=== PATIENT | male | born 1985 | race African-American/Black ===

== ENCOUNTER 2017-06-20 16:51 | Emergency (ER) | payer SELFPAY ==
[~2017-06-20] VITALS: Ht 182.9 cm; Wt 97.5 kg
[2017-06-20] MEDS ORDERED: ACETAMINOPHEN 500 MG TAB (TYLENOL) PO STA (17:20)
[2017-06-20] MEDS ORDERED: KETOROLAC 60 MG/2 ML VIAL IM STA (17:29)
--- NOTE | 2017-06-20 17:36 | ED Cough/URI ---
General Chief Complaint: Cough/Cold/Flu Symptoms Stated Complaint: CHEST PAIN;TROUBLE BREATHING Nursing Triage Note: PT CO OF FEVER COUGH CHEST CONGESTION SINCE THIS AM, FAMILY HAS HAD FLU. Source: patient Exam Limitations: no limitations History of Present Illness Date Seen by Provider: Jun 20, 2017 Time Seen by Provider: 17:22 Initial Comments Here with report of fever, cough, congestion, runny nose and body aches since this morning. He did take an ibuprofen this morning. Reports that he has allergy to ibuprofen but states actually it's only if he does ibuprofen long- term medical therapy and to follow-up. Short-term he does not have problems with that. Denies nausea or vomiting. Planes of aches along his back and neck and shoulders as well as his chest and large muscle groups. This is all described as aching. He is febrile currently. Timing/Duration: this morning Severity/Quality: mild Prior Episodes/Possible Cause: occasional episodes Associated Symptoms: cough, fever/chills, muscle aches, nasal congestion, sore throat Allergies and Home Medications Allergies Coded Allergies: No Known Drug Allergies (Unverified , 06/20/17) Home Medications No Active Prescriptions or Reported Meds Constitutional: see HPI, chills, fever, malaise EENTM: nose congestion, throat pain Respiratory: see HPI Cardiovascular: no symptoms reported Gastrointestinal: no symptoms reported Musculoskeletal: see HPI, muscle pain, No muscle stiffness Skin: no symptoms reported Past Bmwceoo-Mpmucu-Srraoi Hx Patient Social History Alcohol Use: Occasionally Uses Recreational Drug Use: No Smoking Status: Current Someday Smoker Type Used: Cigarettes Recent Foreign Travel: No Contact w/Someone Who Travel: No Recent Infectious Disease Expo: No Recent Hopitalizations: No Physical Abuse: No Sexual Abuse: No Surgeries History of Surgeries: No Respiratory History of Respiratory Disorde: No Cardiovascular History of Cardiac Disorders: No Neurological History of Neurological Disord: No Genitourinary History of Genitourinary Disor: No Gastrointestinal History of Gastrointestinal Di: No Musculoskeletal History of Musculoskeletal Dis: No Psychosocial Suicide Risk Score: 0 Reviewed Nursing Assessment Reviewed/Agree w Nursing PMH: Yes Family Medical History Significant Family History: No Pertinent Family Hx Physical Exam Vital Signs Vital Signs - First Documented 06/20/17 16:55 Temp 100.6 Pulse 109 Resp 18 B/P (MAP) 134/93 (107) Pulse Ox 98 Capillary Refill : Less Than 3 Seconds General Appearance: WD/WN, no apparent distress HEENT: PERRL/EOMI, pharyngeal erythema, other (moderate bilateral sinus congestion moderate edema and clear rhinorrhea.) Neck: full range of motion, supple, lymphadenopathy (R), lymphadenopathy (L) Respiratory: normal breath sounds, no respiratory distress Cardiovascular: regular rate, rhythm, no murmur Gastrointestinal: non tender, soft Extremities: non-tender, normal inspection Neurologic/Psychiatric: alert, oriented x 3 Skin: normal color, warm/dry Progress/Results/Core Measures Suspected Sepsis Recent Fever Within 48 Hours: No Infection Criteria Present: None New/Unexplained Altered Menta: No Sepsis Screen: No Definite Risk Sepsis Diagnosis: SIRS Temperature:100.6 Pulse: 109 Respiratory Rate: 18 Blood Pressure 134 /93 Mean: 107 Results/Orders Micro Results Microbiology 06/20/17 Influenza Types A,B Antigen (BRIANNA) - Final, Complete My Orders Orders - MICHELLE ABEBE MD Influenza A And B Antigens (06/20/17 17:15) Acetaminophen Tablet (Tylenol Tablet) (06/20/17 17:20) Ketorolac Injection (Toradol Injection) (06/20/17 17:29) Vital Signs/I&O Vital Sign - Last 12Hours 06/20/17 16:55 Temp 100.6 Pulse 109 Resp 18 B/P (MAP) 134/93 (107) Pulse Ox 98 Capillary Refill : Less Than 3 Seconds Blood Pressure Mean: 107 Progress Note : Progress Note Seen and evaluated. Influenza screen ordered. Tylenol 1 g by mouth. Toradol 60 mg IM. Monitor patient. 1759: A little better. Flu is negative. Discharged home with return precautions. Patient verbalize understanding instructions and agreement with plan. Departure Impression Impression: Primary Impression: Upper respiratory infection Qualified Codes: J06.9 - Acute upper respiratory infection, unspecified Disposition: 01 HOME, SELF-CARE Condition: Stable Departure-Patient Inst. Decision time for Depature: 17:36 Referrals: NO,LOCAL PHYSICIAN (PCP) Primary Care Physician Patient Instructions: Viral Upper Respiratory Infection, Adult (DC) Add. Discharge Instructions: All discharge instructions reviewed with patient and/or family. Voiced understanding. You may take Tylenol/acetaminophen 1000 mg every 6 hours as needed for fever or pain. You may take ibuprofen 800 mg every 8 hours as needed for fever or pain. You may use Afrin nasal spray or the generic, 12 hour relief, 2 sprays to each nostril twice daily for 3 days only and then stop. Do not use for more than 3 days. You may also take imgg-rbw-ipqavkz cold medicine but be aware that many of these have acetaminophen in then and you should not take the Tylenol/acetaminophen if you are taking cold medicines. Follow-up with your doctor this week for recheck. Return for worse pain, fever, vomiting, weakness , breathing problems or other concerns as needed. Scripts No Active Prescriptions or Reported Meds MICHELLE ABEBE MD Jun 20, 2017 17:36
[2017-06-20 18:06] VITALS: BP 130/88
== END 2017-06-20 18:06 | disposition home or self-care (01) ==
LOC: ER 16:54
DX: J06.9 Acute upper respiratory infection, unspecified (principal); F17.210 Nicotine dependence, cigarettes, uncomplicated
CPT/HCPCS: 87804; 96372; 99284

== ENCOUNTER 2017-06-23 05:57 | Inpatient (IN) | payer SELFPAY ==
[~2017-06-23] VITALS: Ht 188 cm; Wt 88.6 kg
[2017-06-23 06:18] LABS: BASOPHILS % (AUTO) 0 % (0-10); EOSINOPHILS % (AUTO) 1 % (0-10); HEMATOCRIT 33 % (40-54); HEMOGLOBIN 11.7 G/DL (13.3-17.7); LYMPHOCYTES % (AUTO) 15 % (12-44); MEAN CORPUSCULAR HEMOGLOBIN 33 PG (25-34); MEAN CORPUSCULAR HGB CONC 35 G/DL (32-36); MEAN CORPUSCULAR VOLUME 93 FL (80-99); MEAN PLATELET VOLUME 9.9 FL (7.4-10.4); MONOCYTES # (AUTO) 0.2 X 10^3 (0.0-1.0); MONOCYTES % (AUTO) 4 % (0-12); NEUTROPHILS # (AUTO) 5.1 X 10^3 (1.8-7.8); NEUTROPHILS % (AUTO) 81 % (42-75); PLATELET COUNT 369 10^3/uL (130-400); RED BLOOD COUNT 3.58 10^6/uL (4.35-5.85); RED CELL DISTRIBUTION WIDTH 13.2 % (10.0-14.5); WHITE BLOOD COUNT 6.3 10^3/uL (4.3-11.0)
--- NOTE | 2017-06-23 06:19 | ED Cough/URI ---
General Chief Complaint: Chest Pain Stated Complaint: CP,SOB,PAIN ON LEFT SIDE OF CHEST AROUND TO BACK Source: patient Exam Limitations: no limitations History of Present Illness Date Seen by Provider: Jun 23, 2017 Time Seen by Provider: 06:12 Initial Comments This 31 year old black male presents with shortness of breath and cough. Patient is also having pleuritic left-sided chest pain that radiates into his back with coughing. The patient was evaluated in the emergency department several days ago and felt to have viral upper respiratory infection. Patient denies associated headache stiff neck or photophobia. He's had no associated vomiting or diarrhea. He denies dysuria. Patient denies cardiac or underlying pulmonary disease. However the patient does relate that he has had significant anxiety in the past and this exacerbates his present symptoms. Allergies and Home Medications Allergies Coded Allergies: No Known Drug Allergies (Unverified , 06/20/17) Home Medications No Active Prescriptions or Reported Meds Patient Home Medication List Home Medication List Reviewed: Yes Constitutional: diaphoresis, fever EENTM: no symptoms reported Respiratory: cough, short of breath Cardiovascular: chest pain (with oughing) Gastrointestinal: No abdominal pain, No nausea, No vomiting Genitourinary: No dysuria, No frequency Musculoskeletal: back pain (with coughing) Skin: No rash Psychiatric/Neurological: Anxiety Hematologic/Lymphatic: No Symptoms Reported Immunological/Allergic: no symptoms reported Past Uaxwhrp-Orpsrm-Qbrrad Hx Patient Social History Type Used: Cigarettes Recent Foreign Travel: No Contact w/Someone Who Travel: No Recent Hopitalizations: No Surgeries History of Surgeries: No Respiratory History of Respiratory Disorde: No Cardiovascular History of Cardiac Disorders: No Neurological History of Neurological Disord: No Genitourinary History of Genitourinary Disor: No Gastrointestinal History of Gastrointestinal Di: No Musculoskeletal History of Musculoskeletal Dis: No Reviewed Nursing Assessment Reviewed/Agree w Nursing PMH: Yes Family Medical History Significant Family History: No Pertinent Family Hx Physical Exam Vital Signs Vital Signs - First Documented 06/23/17 05:59 Temp 98.1 Pulse 110 Resp 24 B/P (MAP) 146/79 (101) Pulse Ox 96 O2 Delivery Room Air Capillary Refill : General Appearance: WD/WN, mild distress Eyes: Bilateral Eye Normal Inspection HEENT: normal ENT inspection Neck: full range of motion Respiratory: No respiratory distress, decreased breath sounds, other (there is apparent chest pain when the patient coughs on his left.) Cardiovascular: normal peripheral pulses, regular rate, rhythm Gastrointestinal: normal bowel sounds, non tender, soft Extremities: normal range of motion, non-tender, normal inspection Neurologic/Psychiatric: no motor/sensory deficits, alert, normal mood/affect Skin: normal color, warm/dry, No rash Focused Exam Evaluation Lactate Level Laboratory Tests 06/23/17 06:05: Lactic Acid Level 1.41 Lactic Acid Level Laboratory Tests Test 06/23/17 06:05 Lactic Acid Level 1.41 MMOL/L (0.50-2.00) Progress/Results/Core Measures Suspected Sepsis SIRS Temperature: Pulse: Respiratory Rate: Laboratory Tests 06/23/17 06:05: White Blood Count 6.3 Blood Pressure / Mean: Laboratory Tests 06/23/17 06:05: Lactic Acid Level 1.41 Laboratory Tests 06/23/17 06:05: Platelet Count 369 Results/Orders Lab Results Laboratory Tests Test 06/23/17 06:05 Range/Units White Blood Count 6.3 4.3-11.0 10^3/uL Red Blood Count 3.58 L 4.35-5.85 10^6/uL Hemoglobin 11.7 L 13.3-17.7 G/DL Hematocrit 33 L 40-54 % Mean Corpuscular Volume 93 80-99 FL Mean Corpuscular Hemoglobin 33 25-34 PG Mean Corpuscular Hemoglobin Concent 35 32-36 G/DL Red Cell Distribution Width 13.2 10.0-14.5 % Platelet Count 369 130-400 10^3/uL Mean Platelet Volume 9.9 7.4-10.4 FL Neutrophils (%) (Auto) 81 H 42-75 % Lymphocytes (%) (Auto) 15 12-44 % Monocytes (%) (Auto) 4 0-12 % Eosinophils (%) (Auto) 1 0-10 % Basophils (%) (Auto) 0 0-10 % Neutrophils # (Auto) 5.1 1.8-7.8 X 10^3 Lymphocytes # (Auto) 1.0 1.0-4.0 X 10^3 Monocytes # (Auto) 0.2 0.0-1.0 X 10^3 Eosinophils # (Auto) 0.0 0.0-0.3 10^3/uL Basophils # (Auto) 0.0 0.0-0.1 10^3/uL Neutrophils % (Manual) 51 % Lymphocytes % (Manual) 20 % Monocytes % (Manual) 1 % Eosinophils % (Manual) 0 % Basophils % (Manual) 0 % Band Neutrophils 28 % Blood Morphology Comment NORMAL Lactic Acid Level 1.41 0.50-2.00 MMOL/L My Orders Orders - WILLOW LONGORIA MD Chest Pa/Lat (2 View) (06/23/17 06:10) Cbc With Automated Diff (06/23/17 06:10) Blood Culture (06/23/17 06:10) Lactic Acid Analyzer (06/23/17 06:10) Manual Differential (06/23/17 06:05) Lorazepam Tablet (Ativan Tablet) (06/23/17 06:45) Ceftriaxone Injection (Rocephin Injectio (06/23/17 07:15) Azithromycin Injection (Zithromax Inject (06/23/17 07:15) Medications Given in ED Current Medications Medications Dose Ordered Sig/Shwetha Route Start Time Stop Time Status Last Admin Dose Admin Lorazepam 0.5 mg ONCE ONCE PO 06/23/17 06:45 06/23/17 06:47 DC 06/23/17 06:41 0.5 MG Vital Signs/I&O Vital Sign - Last 12Hours 06/23/17 06/23/17 05:59 05:59 Temp 98.1 Pulse 110 Resp 24 B/P (MAP) 146/79 (101) Pulse Ox 96 O2 Delivery Room Air Capillary Refill : Progress Note : Time: 07:20 Progress Note Patient's chest x-ray demonstrated bilateral infiltrates. Patient's white count was unremarkable patient had a significant bandemia. Patient received 2 g Rocephin IV and 500 mg of Zithromax IV was ordered. Telephone consultation was undertaken with Dr. Snow who is kind enough to admit patient. Critical Care Note Critical Care Total Time (minutes) 40 MINUITES for IV antibiotics, admission consultation, and admit orders Departure Communication (Admissions) Time/Spoke to Admitting Phy: 07:[address] Snow. Impression Impression: Primary Impression: Pneumonia Qualified Codes: J18.9 - Pneumonia, unspecified organism Disposition: ADMITTED INPATIENT Condition: Improved Admissions Decision to Admit Reason: Admit from ER (General) Decision to Admit/Date: Jun 23, 2017 Time/Decision to Admit Time: 07:22 Transfer Time Spoke to Accepting Phy: 07:22 Departure-Patient Inst. Referrals: NO,LOCAL PHYSICIAN (PCP/Family) Primary Care Physician Scripts No Active Prescriptions or Reported Meds WILLOW LONGORIA MD Jun 23, 2017 06:19
[2017-06-23] MEDS ORDERED: LORazepam 1 MG (ATIVAN) TAB PO ONE (06:30)
[2017-06-23 06:35] LABS: BAND NEUTROPHILS 28 %; BASOPHILS % (MANUAL) 0 %; EOSINOPHILS % (MANUAL) 0 %; LYMPHOCYTES % (MANUAL) 20 %; MONOCYTES % (MANUAL) 1 %; NEUTROPHILS % (MANUAL) 51 %; RBC MORPH NORMAL
[2017-06-23] MEDS ORDERED: LORazepam 0.5 MG (ATIVAN) TABLET PO ONE (06:45)
[2017-06-23] MEDS ORDERED: cefTRIAXone INJECTION 2,000 MG in NS (IVPB) 100 ML IV ONE (07:15)
[2017-06-23] MEDS ORDERED: AZITHROMYCIN INJECTION 500 MG in NS (IVPB) 250 ML IV ONE (07:15)
--- NOTE | 2017-06-23 07:21 | Diagnostic Imaging Report ---
INDICATION: Cough and congestion. COMPARISON: None available. FINDINGS: Multifocal airspace consolidations involving the right middle lobe, left lower lobe and left upper lobe. No pleural effusion or pneumothorax. Heart is normal in size. Normal pulmonary vasculature. IMPRESSION: Multifocal pneumonia involving both lungs. Advise followup PA and lateral chest radiographs in 4 weeks after appropriate medical management to ensure resolution. Dictated by: Dictated on workstation # [id number]
[2017-06-23] MEDS ORDERED: RT-ALBUTEROL/IPRATROPIUM 3 ML (DUONEB) VIAL INH ONE (07:30)
[2017-06-23] MEDS: NS IV 1000 ML 1,000 ML IV SCH ×2 (09:13→20:04)
[2017-06-23] MEDS ORDERED: INFLUENZA TRIvalent 2017-2018 0.5 ML/45 MCG SYR IM ONE (10:45)
[2017-06-23] MEDS: RT-ALBUTEROL/IPRATROPIUM 3 ML (DUONEB) VIAL IH SCH ×3 (10:46→19:10)
--- NOTE | 2017-06-23 11:23 | History & Physical-Hospitalist ---
HPI History of Present Illness: HPI/Chief Complaint CC: Pneumonia following influenza HPI: This is a 31-year-old -Turk[place] male who presents to the ER with wheezing and shortness of breath and fever 2 days following influenza diagnosis in the ER. He was prescribed Tamiflu and feels like he had worsened since that time. He was assessed in the ER and found to have bilateral pneumonia with wheezing on exam requiring admission to hospital for IV antibiotics and nebulizer treatments and IV steroids. He reports that he moved from [place] one year ago and has no local physician. He works at the [employer] at the intersection of [address] He reports smoking a half a pack of cigarettes. At this current time he denies any pain. He reports pain consistent with pleurisy so Toradol will be initiated along with Tussionex. Source: patient Exam Limitations: no limitations Date Seen 06/23/17 Time Seen by Provider: 11:00 Attending Physician Elsa Snow DO PCP No,Local Physician Referring Physician Date of Admission Jun 23, 2017 at 08:00 Home Medications & Allergies Home Medications Reviewed patient Home Medication Reconciliation Form Allergies Allergies Coded Allergies No Known Drug Allergies (Unverified06/20/17) Past Awgmxjw-Oddaow-Nacwvl Hx Patient Social History Marrital Status: single Employed/Student: employed ([employer]) Alcohol Use: Occasionally Uses Alcohol Beverage of Choice: Beer Recreational Drug Use: No Smoking Status: Current Everyday Smoker Type Used: Cigarettes Physical Abuse Screen: No Sexual Abuse: No Recent Foreign Travel: No Contact w/other who traveled: No Recent Hopitalizations: No Recent Infectious Disease Expo: No Immunizations Up To Date Pediatric: Yes Seasonal Allergies Seasonal Allergies: No Surgeries No Respiratory No Currently Using CPAP: No Currently Using BIPAP: No Cardiovascular No Neurological No Genitourinary No Gastrointestinal No Musculoskeletal No Endocrine History of Endocrine Disorders: No HEENT History of HEENT Disorders: No Cancer No Psychosocial History of Psychiatric Problem: Yes Behavioral Health Disorders: Anxiety Integumentary History of Skin or Integumenta: No Blood Transfusions History of Blood Disorders: No Reviewed Nursing Assessment Reviewed/Agree w Nursing PMH: Yes Family Medical History Significant Family History: No Pertinent Family Hx Family Hx: Asthma 19 FATHER Cardiovascular disease 19 FATHER (ENLARGED HEART) Review of Systems Constitutional: see HPI, chills, fever, malaise, weakness EENTM: no symptoms reported Respiratory: cough, dyspnea on exertion, short of breath, wheezing Cardiovascular: no symptoms reported Gastrointestinal: no symptoms reported Genitourinary: no symptoms reported Musculoskeletal: no symptoms reported Skin: no symptoms reported Psychiatric/Neurological: No Symptoms Reported All Other Systems Reviewed Negative Unless Noted: Yes Physical Exam Physical Exam Vital Signs Vital Signs - First Documented 06/23/17 06/23/17 05:59 07:36 Temp 98.1 Pulse 110 Resp 24 B/P (MAP) 146/79 (101) Pulse Ox 96 O2 Delivery Room Air O2 Flow Rate 0.50 Capillary Refill : Less Than 3 Seconds General Appearance: No Apparent Distress, WD/WN, Mild Distress (Mild acutely ill) Eyes: Bilateral Eye Normal Inspection, Bilateral Eye PERRL HEENT: PERRL/EOMI, Normal ENT Inspection, Pharynx Normal Neck: Full Range of Motion, Normal Inspection, Non Tender, Supple, Carotid Bruit Respiratory: Chest Non Tender, No Accessory Muscle Use, No Respiratory Distress , Crackles, Decreased Breath Sounds, Rales, Wheezing Cardiovascular: Regular Rate, Rhythm, No Edema, No Gallop, No JVD, No Murmur, Normal Peripheral Pulses Gastrointestinal: Normal Bowel Sounds, No Organomegaly, No Pulsatile Mass, Non Tender, Soft Back: Normal Inspection, No CVA Tenderness, No Vertebral Tenderness Extremity: Normal Capillary Refill, Normal Inspection, Normal Range of Motion, Non Tender, No Calf Tenderness, No Pedal Edema Neurologic/Psychiatric: Alert, Oriented x3, No Motor/Sensory Deficits, Normal Mood/Affect, Other (Anxious) Skin: Normal Color, Warm/Dry Lymphatic: No Adenopathy Results Results/Procedures Lab Laboratory Tests 06/23/17 06:05 Assessment/Plan Admission Diagnosis Assessment: Bilateral pneumonia with severe wheezing Recent influenza 2 days prior Acute exacerbation of COPD Current smoker Anxiety Pleuritic chest pain Admission Status: Inpatient Order (span 2 midnights) Reason for Inpatient Admission: IV antibiotics and IV steroids for bilateral pneumonia and acute exacerbation of COPD Assessment and Plan Plan: IV antibiotics IV steroids Nebulizers Tussionex Toradol for pleurisy Monitor labs Smoking cessation counseled Clinical Quality Measures AMI/AHF: ASA po Prior to arrival: No DVT/VTE Risk/Contraindication: Risk Factor Score Per Nursin RFS Level Per Nursing on Admit: 1=Low/No VTE PPX ELSA SNOW DO Jun 23, 2017 11:23
[2017-06-23] MEDS ORDERED: IBUPROFEN TABLET 200 MG TAB PO PRN (11:30)
[2017-06-23] MEDS ORDERED: fentaNYL INJECTION 100 MCG/2 ML AMP IVP PRN (11:30)
[2017-06-23] MEDS ORDERED: ACETAMINOPHEN 500 MG TAB (TYLENOL) PO PRN (11:30)
[2017-06-23] MEDS ORDERED: ONDANSETRON 4 MG/2 ML (SDV) Z0FRAN IVP PRN (11:30)
[2017-06-23] MEDS: methylPREDNISolone 40 MG/ML (Solu-MEDROL) VIAL IV SCH ×3 (11:56→23:54)
[2017-06-23] MEDS: KETOROLAC 30 MG/ML VIAL IVP PRN ×2 (11:56→18:13)
[2017-06-23] MEDS: LORazepam 0.5 MG (ATIVAN) TABLET PO PRN ×2 (11:56→18:14)
[2017-06-23 12:00] VITALS: BP 138/65
[2017-06-23] MEDS: HYDROCODONE/CHLOR 10MG/5 ML (TUSSIONEX SUSP) 5ML UDC PO SCH ×2 (12:03→20:39)
[2017-06-23 15:36] VITALS: BP 134/71
[2017-06-23] MEDS: ENOXAPARIN 40 MG/0.4 ML (LOVENOX) SYR SC SCH (16:46)
[2017-06-23 19:45] VITALS: BP 116/87
[2017-06-23 23:48] VITALS: BP 134/88
[2017-06-24] MEDS: KETOROLAC 30 MG/ML VIAL IVP PRN ×2 (00:47→08:24)
[2017-06-24 04:00] VITALS: BP 145/95
[2017-06-24 04:43] LABS: BASOPHILS % (AUTO) 0 % (0-10); EOSINOPHILS # (AUTO) 0.1 10^3/uL (0.0-0.3); EOSINOPHILS % (AUTO) 1 % (0-10); HEMATOCRIT 29 % (40-54); LYMPHOCYTES # (AUTO) 1.1 X 10^3 (1.0-4.0); LYMPHOCYTES % (AUTO) 10 % (12-44); MEAN CORPUSCULAR HEMOGLOBIN 33 PG (25-34); MEAN CORPUSCULAR HGB CONC 35 G/DL (32-36); MEAN CORPUSCULAR VOLUME 94 FL (80-99); MEAN PLATELET VOLUME 10.3 FL (7.4-10.4); MONOCYTES # (AUTO) 0.5 X 10^3 (0.0-1.0); MONOCYTES % (AUTO) 4 % (0-12); NEUTROPHILS % (AUTO) 85 % (42-75); PLATELET COUNT 325 10^3/uL (130-400); RED BLOOD COUNT 3.08 10^6/uL (4.35-5.85); RED CELL DISTRIBUTION WIDTH 13.3 % (10.0-14.5); WHITE BLOOD COUNT 11.7 10^3/uL (4.3-11.0)
[2017-06-24 04:56] LABS: ALANINE AMINOTRANSFERASE 42 U/L (0-55); ALBUMIN 3.4 GM/DL (3.2-4.5); ALKALINE PHOSPHATASE 86 U/L (40-136); BILIRUBIN,TOTAL 0.6 MG/DL (0.1-1.0); BUN/CREATININE RATIO 19; CALCIUM 9.5 MG/DL (8.5-10.1); CARBON DIOXIDE 18 MMOL/L (21-32); CHLORIDE 108 MMOL/L (98-107); CREATININE SERUM 0.79 MG/DL (0.60-1.30); GFR ESTIMATED > 60; GLUCOSE 196 MG/DL (70-105); POTASSIUM 3.5 MMOL/L (3.6-5.0); SODIUM 139 MMOL/L (135-145); TOTAL PROTEIN 6.9 GM/DL (6.4-8.2)
[2017-06-24] MEDS: NS IV 1000 ML 1,000 ML IV SCH (05:08)
[2017-06-24] MEDS: methylPREDNISolone 40 MG/ML (Solu-MEDROL) VIAL IV SCH ×3 (05:09→18:30)
[2017-06-24 08:00] VITALS: BP 157/99
[2017-06-24] MEDS: RT-ALBUTEROL/IPRATROPIUM 3 ML (DUONEB) VIAL IH SCH ×4 (08:00→19:29)
[2017-06-24] MEDS: LORazepam 0.5 MG (ATIVAN) TABLET PO PRN ×2 (08:24→18:36)
[2017-06-24] MEDS: AZITHROMYCIN 500 MG/NS 250 ML IVPB IV SCH ×2 (08:25)
[2017-06-24] MEDS: HYDROCODONE/CHLOR 10MG/5 ML (TUSSIONEX SUSP) 5ML UDC PO SCH ×2 (08:29→21:02)
[2017-06-24] MEDS: cefTRIAXone 1 GM/NS 100 ML IVPB IV SCH ×2 (10:59)
[2017-06-24 11:34] VITALS: BP 158/101
--- NOTE | 2017-06-24 11:43 | Progress Note-Hospitalist ---
Progress Note HPI/CC on Admission CC: Pneumonia following influenza HPI: This is a 31-year-old -[place]ales[place] male who presents to the ER with wheezing and shortness of breath and fever 2 days following influenza diagnosis in the ER. He was prescribed Tamiflu and feels like he had worsened since that time. He was assessed in the ER and found to have bilateral pneumonia with wheezing on exam requiring admission to hospital for IV antibiotics and nebulizer treatments and IV steroids. He reports that he moved from [place] one year ago and has no local physician. He works at the [place] [employer] at the intersection of [email or web address] He reports smoking a half a pack of cigarettes. At this current time he denies any pain. He reports pain consistent with pleurisy so Toradol will be initiated along with Tussionex. Progress Notes/Assess & Plan Date Seen 06/24/17 Time Seen by Provider: 10:30 Admission Dx/Process Assessment: Bilateral pneumonia with severe wheezing Recent influenza 2 days prior Acute exacerbation of COPD Current smoker Anxiety Pleuritic chest pain Diagonsis/Assessment & Plan Patient doing much better and pleuritic chest pain improved Hypertension noted and likely this is a chronic issue so will initiate diuretics for fluid on chest x-ray and help with blood pressure in addition to starting Norvasc Is able to ambulate but will provide oxygen due to shortness of breath but is only requiring 1.5 L to maintain oxygen saturation Anxiety component to small shallow breathing so will initiate incentive spirometry and a cappella with mat protocol. Blood cultures all positive for strep pneumo maintained on Rocephin and child at bedside today Smoking cessation counseling No fever, vital signs stable, improved, pleasant, oriented 3 Regular rate and rhythm, diminished breath sounds all nelson with crackles noted but good air expansion No edema Laboratory Tests 06/24/17 04:10 Assessment: Bilateral pneumonia with severe wheezing and BCx+ 3/4 bottles with Strep Pneumoniae on Rocephin day # 2 Recent influenza 2 days prior to admit Acute exacerbation of COPD Current smoker Anxiety Pleuritic chest pain HTN I assume this is chronic so place on Norvasc and give Lasix 20mg IVP Plan: IV antibiotics IV steroids Nebulizers Tussionex Toradol for pleurisy Monitor labs Smoking cessation counseled Ambulate with O2 IS w/Acupella Home O2 evaluation Check chest x-ray labs tomorrow LENORA PASTOR DO Jun 24, 2017 11:43
[2017-06-24] MEDS ORDERED: FUROSEMIDE 40 MG/4 ML INJ (LASIX) IVP ONE (11:45)
[2017-06-24] MEDS ORDERED: amLODIPine 5 MG (NORVASC) TAB PO SCH (11:45)
--- NOTE | 2017-06-24 11:48 | Diagnostic Imaging Report ---
INDICATION: Pneumonia EXAM: PA and lateral views of the chest were obtained. COMPARISON is made to study of 06/23/2017. FINDINGS: There has been worsening of extensive bilateral airspace disease. No pneumothorax is identified. No significant pleural fluid is seen. IMPRESSION: Extensive bilateral airspace disease, likely due to pneumonia, however superimposed edema and/or hemorrhage is not excluded. Clinical correlation and radiographic followup are recommended. Dictated by: Dictated on workstation # [id number]
[2017-06-24 15:14] VITALS: BP 158/101
[2017-06-24] MEDS: ENOXAPARIN 40 MG/0.4 ML (LOVENOX) SYR SC SCH (16:02)
[2017-06-24 16:55] VITALS: BP 136/97
[2017-06-24 21:20] VITALS: BP 164/92
[2017-06-25] VITALS (44 sets, daily range): BP systolic 112–217; BP diastolic 65–131
[2017-06-25] MEDS: methylPREDNISolone 40 MG/ML (Solu-MEDROL) VIAL IV SCH ×5 (00:03→23:23)
[2017-06-25 05:48] LABS: BASOPHILS % (AUTO) 0 % (0-10); EOSINOPHILS % (AUTO) 0 % (0-10); HEMATOCRIT 30 % (40-54); HEMOGLOBIN 10.7 G/DL (13.3-17.7); LYMPHOCYTES # (AUTO) 1.6 X 10^3 (1.0-4.0); LYMPHOCYTES % (AUTO) 9 % (12-44); MEAN CORPUSCULAR HEMOGLOBIN 32 PG (25-34); MEAN CORPUSCULAR HGB CONC 35 G/DL (32-36); MEAN CORPUSCULAR VOLUME 92 FL (80-99); MONOCYTES # (AUTO) 1.3 X 10^3 (0.0-1.0); MONOCYTES % (AUTO) 7 % (0-12); NEUTROPHILS # (AUTO) 14.8 X 10^3 (1.8-7.8); NEUTROPHILS % (AUTO) 84 % (42-75); PLATELET COUNT 380 10^3/uL (130-400); RED CELL DISTRIBUTION WIDTH 13.3 % (10.0-14.5); WHITE BLOOD COUNT 17.7 10^3/uL (4.3-11.0)
[2017-06-25 06:06] LABS: BAND NEUTROPHILS 5 %; BASOPHILS % (MANUAL) 0 %; EOSINOPHILS % (MANUAL) 0 %; LYMPHOCYTES % (MANUAL) 15 %; METAMYELOCYTES % 1 %; MONOCYTES % (MANUAL) 6 %; NEUTROPHILS % (MANUAL) 72 %; NUCLEATED RED BLOOD CELLS 2; REACTIVE LYMPHOCYTES 1 %
[2017-06-25 06:07] LABS: TOXIC GRANULATION/VACUOLAZATIO 1+
[2017-06-25] MEDS: RT-ALBUTEROL/IPRATROPIUM 3 ML (DUONEB) VIAL IH SCH (06:18)
[2017-06-25 06:24] LABS: ALANINE AMINOTRANSFERASE 34 U/L (0-55); ALBUMIN 3.4 GM/DL (3.2-4.5); ALKALINE PHOSPHATASE 111 U/L (40-136); BILIRUBIN,TOTAL 0.6 MG/DL (0.1-1.0); BUN/CREATININE RATIO 26; CALCIUM 9.7 MG/DL (8.5-10.1); CARBON DIOXIDE 24 MMOL/L (21-32); CHLORIDE 105 MMOL/L (98-107); GFR ESTIMATED > 60; GLUCOSE 140 MG/DL (70-105); POTASSIUM 3.3 MMOL/L (3.6-5.0); SODIUM 139 MMOL/L (135-145); TOTAL PROTEIN 7.2 GM/DL (6.4-8.2)
--- NOTE | 2017-06-25 06:49 | Pulmonary Consultation ---
History of Present Illness History of Present Illness Date of Consultation 06/25/17 06:40 Time Seen by Provider: 06:40 Date of Admission History of Present Illness 31yo AAM with hx of asthma and recently moved here from [place] 1 yr ago and has no PCP currently. Pt presented to ED secondary to worsening SOB and was dx with pneumonia. Pt was admitted to 4th floor and placed on Rocephin and Azithromycin. BC have grown out Strep pneumonia x 2. Despite being on adequate antibiotic therapy pt has persistently worsened throughout the night. He is requiring 70% Fio2 on Vapotherm and he has conversational dyspnea. Pt has also had pleurisy and has been treated with Toradol. Pt does admit to smoking 1/2 pk/ day. Denies illicit drug use. Denies vapor cigs. Allergies and Home Medications Allergies Coded Allergies: No Known Drug Allergies (Unverified , 06/20/17) Home Medications No Active Prescriptions or Reported Meds Past Gjqeuzs-Ghyxhj-Gydkkz Hx Patient Social History Alcohol Use: Occasionally Uses Alcohol Beverage of Choice: Beer Recreational Drug Use: No Smoking Status: Current Everyday Smoker Type Used: Cigarettes Recent Foreign Travel: No Contact w/Someone Who Travel: No Recent Infectious Disease Expo: No Recent Hopitalizations: No Immunizations Up To Date PED Vaccines UTD: Yes Seasonal Allergies Seasonal Allergies: No Surgeries History of Surgeries: No Respiratory History of Respiratory Disorde: No Currently Using CPAP: No Currently Using BIPAP: No Cardiovascular History of Cardiac Disorders: No Neurological History of Neurological Disord: No Genitourinary History of Genitourinary Disor: No Gastrointestinal History of Gastrointestinal Di: No Musculoskeletal History of Musculoskeletal Dis: No Endocrine History of Endocrine Disorders: No HEENT History of HEENT Disorders: No Cancer History of Cancer: No Psychosocial History of Psychiatric Problem: Yes Behavioral Health Disorders: Anxiety Integumentary History of Skin or Integumenta: No Blood Transfusions History of Blood Disorders: No Reviewed Nursing Assessment Reviewed/Agree w Nursing PMH: Yes Family Medical History Significant Family History: No Pertinent Family Hx Family Medial History: Asthma 19 FATHER Cardiovascular disease 19 FATHER (ENLARGED HEART) Review of Systems Time Seen by Provider: 07:06 Constitutional: Fever, Chills, Sweats, Weakness, Malaise Eyes: No: Pain, Vision change, Conjunctivae inflammation, Eyelid inflammation, Other, Redness ENT: No: Ear pain, Ear discharge, Nose pain, Nose discharge, Nose congestion, Mouth pain, Mouth swelling, Throat pain, Throat swelling, Other Respiratory: Shortness of breath, SOB with excertion, Wheezing, Pleuritic Pain , Sputum, No: Hemoptysis Cardiovascular: Chest Pain, Palpitations, Orthopnea, Paroxysmal Noc. Dyspnea, Lt Headedness, No: Edema Gastrointestinal: No: Nausea, Vomiting, Abdominal Pain, Diarrhea, Constipation , Melena, Hematochezia, Other Genitourinary: No Dysuria, No Frequency, No Incontinence, No Hematuria, No Retention, No Other Musculoskeletal: No: neck pain Neurological: Weakness, No: Change in speech, Confusion Exam Exam Vital Signs Date Time Temp Pulse Resp B/P (MAP) Pulse Ox O2 Delivery O2 Flow Rate FiO2 06/25/17 06:22 92 Vapotherm 15.00 70 06/25/17 04:05 98.8 70 32 168/92 (117) 93 Vapotherm 70.00 15.00 06/25/17 00:25 99.1 82 28 168/94 (118) 96 Vapotherm 70.00 15.00 06/24/17 21:20 98.2 71 49 164/92 (116) 95 Nasal Cannula 5.00 06/24/17 21:00 90 Nasal Cannula 5.00 06/24/17 19:31 92 Nasal Cannula 3.00 06/24/17 16:55 98.1 67 20 136/97 (110) 98 Nasal Cannula 3.00 06/24/17 15:14 86 96 32 06/24/17 15:08 96 3.00 06/24/17 14:59 92 Nasal Cannula 3.00 06/24/17 11:34 98.2 86 22 158/101 (120) 99 Nasal Cannula 1.50 06/24/17 10:41 95 Room Air 06/24/17 09:00 95 Nasal Cannula 1.00 06/24/17 08:00 98.3 82 20 157/99 (118) 100 Nasal Cannula 1.50 06/24/17 08:00 92 Room Air I & O 06/25/17 07:00 Intake Total 3040 ml Balance 3040 ml General Appearance: WD/WN, Anxious, Severe Distress HEENT: PERRL/EOMI, Normal ENT Inspection, Pharynx Normal Neck: Full Range of Motion, Normal Inspection, Non Tender, Supple, Carotid Bruit Respiratory: Accessory Muscle Use, Crackles, Decreased Breath Sounds, Rales, Respiratory Distress Cardiovascular: Regular Rate, Rhythm, No Edema, No Gallop, No JVD, No Murmur, Normal Peripheral Pulses Capillary Refill: Less Than 3 Seconds Gastrointestinal: normal bowel sounds, non tender, soft Extremity: Normal Capillary Refill, Normal Inspection, Normal Range of Motion, Non Tender, No Calf Tenderness, No Pedal Edema Neurologic/Psychiatric: Alert, Oriented x3, No Motor/Sensory Deficits, Normal Mood/Affect, Other (Anxious) Skin: Normal Color, Warm/Dry Lymphatic: No Adenopathy Results Lab Laboratory Tests 06/24/17 04:10 06/25/17 05:30 Assessment/Plan Assessment/Plan Acute Respiratory failure Bilateral pneumonia with probable ARDS -Check ABG -Check CT r/o empyema -Oxygen -Check echocardiogram -Check HIV Strep pneumonia -Continue Rocephin -Repeat zimmerman cultures Anemia -Check peripheral spear -monitor Will have low threshold for intubating pt secondary to severity of pneumonia. Will transfer pt to ICU and monitor closely. Attempted to call and phone states "not excepting calls at this time". Discussed with medical team and patient current condition and plan of care. I have also discussed with Dr. Snow. Critical Care: Critically Ill Patient Time spent with patient (mins): 120 Advance Care discuss with: patient, family member (s) ERIC SEALS DO Jun 25, 2017 06:49
[2017-06-25 07:05] LABS: ABG BASE EXCESS -1.3 MMOL/L (-2.5-2.5); ABG OXYGEN SATURATION 91 % (94-100); ABG PCO2 35 MMHG (35-45); ABG PH 7.42 (7.37-7.43); ABG PO2 59 MMHG (79-93); ABG TCO2 23.5 MMOL/L (21.0-31.0); ALLENS TEST POSITIVE; INSPIRED O2 15 LPM 70%; PATIENT TEMP 98.5; VENTILATOR NO
[2017-06-25] MEDS ORDERED: IOHEXOL 350 MG/ML 150 ML (OMNIPAQUE 350) VIAL IV ONE (07:15)
[2017-06-25] MEDS ORDERED: NS 250 ML (IVPB) BAG IV ONE (07:15)
[2017-06-25] MEDS ORDERED: LORazepam INJ 2 MG/ML (ATIVAN) VIAL IVP NR (07:45)
[2017-06-25] MEDS ORDERED: morphine INJ 10 MG/ML 1ML (SYR OR VIAL) IVP NR (07:45)
[2017-06-25] MEDS: morphine INJ 4 MG/ML 1 ML (VIAL/SYRINGE) ONE ×2 (07:47→07:49)
[2017-06-25] MEDS ORDERED: PROPOFOL DRIP (ICU) 100 ML IV ONE ×5 (07:49→17:18)
[2017-06-25] MEDS ORDERED: fentaNYL INJECTION 100 MCG/2 ML AMP INJ ONE (07:51)
[2017-06-25] MEDS ORDERED: MIDAZOLAM 5 MG/5 ML (VERSED) VIAL INJ ONE (07:51)
[2017-06-25] MEDS ORDERED: SUCCINYLCHOLINE INJ 100 MG/5 ML SYR INJ ONE (07:51)
[2017-06-25] MEDS ORDERED: PROMETHAZINE INJ 25 MG/ML (PHENERGAN) AMP ONE (07:52)
[2017-06-25 07:56] LABS: BASOPHILS % (AUTO) 0 % (0-10); EOSINOPHILS % (AUTO) 0 % (0-10); HEMATOCRIT 30 % (40-54); HEMOGLOBIN 10.7 G/DL (13.3-17.7); LYMPHOCYTES # (AUTO) 1.6 X 10^3 (1.0-4.0); LYMPHOCYTES % (AUTO) 9 % (12-44); MEAN CORPUSCULAR HEMOGLOBIN 32 PG (25-34); MEAN CORPUSCULAR HGB CONC 35 G/DL (32-36); MEAN CORPUSCULAR VOLUME 92 FL (80-99); MONOCYTES # (AUTO) 1.3 X 10^3 (0.0-1.0); MONOCYTES % (AUTO) 7 % (0-12); NEUTROPHILS # (AUTO) 14.8 X 10^3 (1.8-7.8); NEUTROPHILS % (AUTO) 84 % (42-75); PLATELET COUNT 380 10^3/uL (130-400); RED CELL DISTRIBUTION WIDTH 13.3 % (10.0-14.5); WHITE BLOOD COUNT 17.7 10^3/uL (4.3-11.0)
[2017-06-25] MEDS: PROPOFOL DRIP (ICU) 100 ML IV SCH ×3 (08:00→23:51)
[2017-06-25 08:14] LABS: ABSOLUTE RETIC # 10 10e9/L (24-90); RETICULOCYTE % 0.32 % (0.50-2.40)
[2017-06-25] MEDS ORDERED: CISATRACURIUM 2MG/ML (NIMBEX) 10ML VIAL IV ONE ×2 (08:15→08:30)
[2017-06-25 08:29] LABS: BAND NEUTROPHILS 5 %; BASOPHILS % (MANUAL) 0 %; EOSINOPHILS % (MANUAL) 0 %; LYMPHOCYTES % (MANUAL) 15 %; METAMYELOCYTES % 1 %; MONOCYTES % (MANUAL) 6 %; NEUTROPHILS % (MANUAL) 72 %; NUCLEATED RED BLOOD CELLS 2; REACTIVE LYMPHOCYTES 1 %; TOXIC GRANULATION/VACUOLAZATIO 1+
--- NOTE | 2017-06-25 08:30 | Pulmonary Progress Note ---
Standard Progress Note Progress Notes Date Seen by Provider: Jun 25, 2017 Time Seen by Provider: 08:25 Pt is doing worse and has conversational dyspnea. Will proceed with intubation. Assessment & Plan Acute Respiratory failure Bilateral pneumonia with ARDS -Check CT r/o empyema -Oxygen -Check echocardiogram -Check HIV Strep pneumonia -Continue Rocephin -Repeat zimmerman cultures Anemia -Check peripheral spear -monitor Called to bedside after patient transferred to ICU secondary to pt having rapidly progressive SOB. Will proceed with intubation. ERIC SEALS DO Jun 25, 2017 08:30
--- NOTE | 2017-06-25 08:31 | Pulmonary Procedures ---
Pulmonary Procedures Date of Procedure Date of Service: Jun 25, 2017 Time of Intubation: 08:31 Intubation Method: orotracheal Medications: Fentanyl, Propofol, Succinylcholine, Versed Positive End Tide CO2: Yes Breath Sounds after Intubation: bilateral-equal Intubation Complications: no complications Post Intubation Xray: Yes ERIC SEALS DO Jun 25, 2017 08:31
[2017-06-25] MEDS ORDERED: fentaNYL INJECTION 1,250 MCG in NS (IVPB) 225 ML IV SCH (08:45)
--- NOTE | 2017-06-25 08:47 | Progress Note-Hospitalist ---
Subjective HPI/CC On Admission Date Seen by Provider: Jun 25, 2017 Time Seen by Provider: 07:55 CC: Pneumonia following influenza HPI: This is a 31-year-old -[place] male who presents to the ER with wheezing and shortness of breath and fever 2 days following influenza diagnosis in the ER. He was prescribed Tamiflu and feels like he had worsened since that time. He was assessed in the ER and found to have bilateral pneumonia with wheezing on exam requiring admission to hospital for IV antibiotics and nebulizer treatments and IV steroids. He reports that he moved from [place] one year ago and has no local physician. He works at the [place] at the intersection of [address] He reports smoking a half a pack of cigarettes. At this current time he denies any pain. He reports pain consistent with pleurisy so Toradol will be initiated along with Tussionex. Subjective/Events-last exam Pt found to have worsening resp failure this morning and transfer to ICU. I saw shortly before intubation and noticeably short of breath. Agrees to intubation. I have attempted to called his but there is no answer and no ability to leave voicemail. Objective Exam Vital Signs Vital Signs Date Time Temp Pulse Resp B/P (MAP) Pulse Ox O2 Delivery O2 Flow Rate FiO2 06/23/17 05:59 98.1 110 24 146/79 (101) 96 06/23/17 05:59 Room Air 06/23/17 07:36 0.50 06/24/17 15:14 32 Capillary Refill : Less Than 3 Seconds General Appearance: WD/WN, Moderate Distress Respiratory: Accessory Muscle Use, Crackles, Rhonci Cardiovascular: Regular Rate, Rhythm, No Murmur Gastrointestinal: Normal Bowel Sounds, Non Tender, Soft Extremity: Non Tender, No Calf Tenderness, No Pedal Edema Neurologic/Psychiatric: Alert, Oriented x3 Results/Procedures Lab Laboratory Tests 06/25/17 05:30 Assessment/Plan Assessment and Plan Assess & Plan/Chief Complaint Acute Respiratory Failure Critical Care: Critically Ill Patient Diagnosis/Problems Diagnosis/Problems (1) Acute respiratory failure Status: Acute Assessment & Plan: secondary to ARDS from strep pneumonia Continue on Rocephin and Azithro Pulm consulted, appreciate recs Intubated this AM- PEEP of 12 Will attempt prone positioning Lasix if BNP elevated and BP holds following sedation Triglyceride check ordered for high doses of propofol Nimbex as well Qualifiers: Qualified Codes: J96.01 - Acute respiratory failure with hypoxia (2) ARDS (adult respiratory distress syndrome) Status: Acute Assessment & Plan: As above Low TV as able Monitor I/Os- Lasix as needed Pulm consulted, appreciate recs Will attempt prone positioning (3) Streptococcal pneumonia Status: Acute Assessment & Plan: Strep grew in all tubes Continue abx as above Echo ordered Will check HIV Will add probiotic (4) Asthma Status: Chronic Assessment & Plan: Unsure of baseline Continue Steroids and MAT protocol Qualifiers: Qualified Codes: J45.909 - Unspecified asthma, uncomplicated (5) Bacteremia Assessment & Plan: Abx as above (6) Essential (primary) hypertension Status: Chronic Assessment & Plan: Currently on cardene gtt due to severely elevated BPs Increased Amlodipine and switched to via OG (7) Prophylactic measure Assessment & Plan: Lovenox Protonix Saline lock NPO CAIN BURRELL MD Jun 25, 2017 08:47
[2017-06-25] MEDS: PANTOPRAZOLE 40 MG/10 ML (PROTONIX) VIAL IV SCH (09:00)
--- NOTE | 2017-06-25 09:06 | Diagnostic Imaging Report ---
INDICATION: Post intubation. Comparison made with prior examination from 06/24/17. FINDINGS: There is increasing diffuse bilateral airspace disease. Heart size is stable. There is no pleural effusion or pneumothorax. ET and NG tubes appear to be in satisfactory position. IMPRESSION: Satisfactory placement of ET and NG tube. Increasing diffuse bilateral airspace disease Dictated by: Dictated on workstation # [id number]
--- NOTE | 2017-06-25 09:37 | Pulmonary Procedures ---
Pulmonary Procedures Date of Procedure Date of Service: Jun 25, 2017 Lumen: triple (US guided ) Central Line Procedure: betadine prep, sterile drapes applied, sterile dressing applied Position: internal jugular (R) Anesthesia: Lidocaine Volume Anesthetic (ccs): 5 Complications: none (CXR is pending) Post Position: sutured, good blood return (distal port no blood return ) ERIC SEALS DO Jun 25, 2017 09:37
[2017-06-25 10:00] LABS: ABG BASE EXCESS -0.5 MMOL/L (-2.5-2.5); ABG OXYGEN SATURATION 92 % (94-100); ABG PCO2 65 MMHG (35-45); ABG PO2 72 MMHG (79-93); ABG TCO2 28.2 MMOL/L (21.0-31.0)
[2017-06-25 10:01] LABS: ABG PH 7.23 (7.37-7.43); ALLENS TEST POSITIVE; INSPIRED O2 60%; PATIENT TEMP 98.4; VENTILATOR YES
[2017-06-25] MEDS ORDERED: hydrALAZINE (APESOLINE) 20 MG/ML VIAL ONE (10:09)
[2017-06-25] MEDS: RT-ALBUTEROL/IPRATROPIUM 3 ML (DUONEB) VIAL INH SCH ×8 (10:33→23:41)
--- NOTE | 2017-06-25 10:34 | Diagnostic Imaging Report ---
PROCEDURE: CT angiography of the chest with contrast. TECHNIQUE: Multiple contiguous axial images were obtained through the chest after uneventful bolus administration of intravenous contrast. Reconstructed CTA MIP acquisitions were also performed. INDICATION: Post intubation. COMPARISON: Comparison is made with chest radiograph performed earlier the same morning. FINDINGS: The tip of the endotracheal tube is well above the cris and near the thoracic inlet. There is a nasogastric tube which extends into the stomach. There appears to be a right IJ central line. The tip of the central line appears to deviate to the right in the region of the medial aspect of the right subclavian vein. The axillae are unremarkable. Small lymph nodes in the mediastinum, right paratracheal location are noted. There is more prominent lymph nodes in the prevascular space of the mediastinum with a lymph node having a short axis measurement of 13 mm. There is mild subcarinal fullness as well. No pericardial or pleural effusion is identified. Parenchymal evaluation demonstrates extensive five lobe airspace consolidation with air bronchograms. The central airways are patent. The upper abdomen is unremarkable. The bony structures appear nonacute. The central pulmonary arteries appear to be patent. No definite filling defects are seen. Lobar and segmental branches are also patent. The thoracic aorta is normal caliber. No dissection is identified. IMPRESSION: 1. Extensive five lobe airspace consolidation and air bronchograms. The considerations include pulmonary edema, pneumonia or perhaps pulmonary hemorrhage. There are some mildly prominent mediastinal lymph nodes which may be reactive. No significant pleural or pericardial fluid is detected. 2. No evidence of pulmonary embolism or thoracic aortic dissection. 3. Malpositioned right IJ line which appears to have the tip in the medial aspect of the right subclavian vein. Dictated by: Dictated on workstation # [id number]
[2017-06-25] MEDS: CISATRACURIUM 100 MG/NS 200 ML (TOTAL VOLUME 250 ML) IV SCH ×4 (11:56→13:10)
[2017-06-25] MEDS: HYDROCODONE/CHLOR 10MG/5 ML (TUSSIONEX SUSP) 5ML UDC PO SCH ×2 (11:56→20:27)
[2017-06-25] MEDS: AZITHROMYCIN 500 MG/NS 250 ML IVPB IV SCH ×2 (11:56)
[2017-06-25] MEDS: cefTRIAXone 1 GM/NS 100 ML IVPB IV SCH ×2 (11:56)
[2017-06-25] MEDS: POTASSIUM CL 10MEQ/50ML IVPB 50 ML IV SCH ×3 (11:56→13:09)
[2017-06-25] MEDS: niCARdipine IV 50 MG in NS (IVPB) 230 ML IV SCH ×3 (12:00→23:39)
[2017-06-25] MEDS: NS IV 1000 ML 1,000 ML IV SCH ×2 (12:09→18:31)
[2017-06-25] MEDS: fentaNYL INJECTION 1,250 MCG in NS (IVPB) 250 ML IV SCH (12:12)
[2017-06-25] MEDS: LACTOBACILLUS Acidoph/Bulgar (LACTINEX/FLORANEX) TAB PO SCH ×2 (12:13→18:17)
[2017-06-25] MEDS ORDERED: niCARdipine IV FOR DRIP 50 MG KIT ONE (12:19)
[2017-06-25] MEDS ORDERED: NS (IVPB) 250 ML ONE (12:20)
[2017-06-25 12:51] LABS: BILIRUBIN,URINE NEGATIVE (NEGATIVE); CLARITY,URINE CLEAR; COLOR,URINE YELLOW; GLUCOSE, URINE (UA) NEGATIVE (NEGATIVE); KETONES,URINE NEGATIVE (NEGATIVE); LEUKOCYTE ESTERASE ,URINE NEGATIVE (NEGATIVE); NITRITE,URINE NEGATIVE (NEGATIVE); PH,URINE 6 (5-9); PROTEIN,URINE 2+ (NEGATIVE); UROBILINOGEN,URINE NORMAL (NORMAL)
[2017-06-25 13:00] LABS: AMORPHOUS SEDIMENT,UR RARE AMOR URATES /LPF; BACTERIA,URINE NEGATIVE /HPF; SQUAMOUS EPITHELIAL CELL,UR 0-2 /HPF; WBC,URINE 0-2 /HPF
--- NOTE | 2017-06-25 13:10 | Diagnostic Imaging Report ---
INDICATION: Evaluate central line and ET tube. TIME OF EXAM: 12:41 p.m. Correlation is made with prior study earlier same day. FINDINGS: ET tube is pulled back and appears to be just cephalad to the thoracic inlet. Right IJ line is curled in the right neck with tip directed retrograde. NG tube passes into the stomach. Extensive bilateral airspace infiltrates are noted. IMPRESSION: Endotracheal tube and right IJ line location, as described. Dictated by: Dictated on workstation # [id number]
--- NOTE | 2017-06-25 13:11 | Diagnostic Imaging Report ---
INDICATION: ET tube adjustment. TIME OF EXAM: 12:51 PM Correlation is made with prior study several minutes earlier. FINDINGS: ET tube has been advanced but still has a tip at approximately the level of the thoracic inlet. Right IJ line remains with the distal tip coiled and directed cephalad. Bilateral infiltrates are unchanged. There is no pneumothorax. IMPRESSION: ET tube and IJ line, as described. Dictated by: Dictated on workstation # [id number]
[2017-06-25 13:30] LABS: ABG BASE EXCESS 0.3 MMOL/L (-2.5-2.5); ABG OXYGEN SATURATION 95 % (94-100); ABG PO2 85 MMHG (79-93); ABG TCO2 29.8 MMOL/L (21.0-31.0)
[2017-06-25 13:32] LABS: ABG PCO2 73 MMHG (35-45); ALLENS TEST ARTLINE
[2017-06-25 13:33] LABS: INSPIRED O2 60% FIO2; PATIENT TEMP 98.4; VENTILATOR YES
--- NOTE | 2017-06-25 13:44 | Progress Note-Standard ---
Standard Progress Note Progress Notes/Assess & Plan Date Seen by Provider: Jun 25, 2017 Time Seen by Provider: 13:15 Progress/Assessment & Plan Anesthesia Note ([id number]) Called to ICU 12 for arterial line placement. Pt is intubated and sedated, currently in the prone position. Left radial arterial line placed after sterile prep with ChloraPrep. 20 G catheter threaded easily over the wire in standard art line kit. Secured with sterile tegaderm with a good waveform. Pt was sedated and paralyzed, and he tolerated the procedure well. Will be available if needed. NANCY SANTIAGO DO Jun 25, 2017 13:44
[2017-06-25] MEDS ORDERED: FUROSEMIDE 40 MG/4 ML INJ (LASIX) IVP NR (15:30)
--- NOTE | 2017-06-25 15:30 | Clinic Account Progress/Dx ---
Clinic Account Progress/Dx DIAGNOSIS: Date Seen by Provider: Jun 25, 2017 Time Seen by Provider: 14:57 Acute Respiratory Failure Called to bedside by nurse about concerns regarding ETT and Central line. 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 He had just been switched back to supine position and appeared to have leak in cuff. Patient sedated and paralyzed with elevated BPs. Unable to discuss with patient. Called eICU physician forest and conservation worker, Dr Bullard, and discussed case with him. He was concerned about airway protection given repositioning and also about positioning of the ETT ( at the thoracic outlet). I reviewed imaging of most recent CXR for positioning of CVC and ETT. CVC is malpositioned and tip is pointing cephalically. ETT remains very high even after attempts by RT/RN to advance. Discussed with Anesthesia and General surgery about replacing both. Anesthesia at bedside. Surgery reports will come to bedside soon to place new central line. I called and updated Dr Hernandez as well. Will DC prone positioning as well. Critical Care time spent [id number]. CAIN BURRELL MD Jun 25, 2017 15:30
--- NOTE | 2017-06-25 16:22 | Diagnostic Imaging Report ---
INDICATION: Respiratory failure EXAM: Portable chest at 3:56 PM FINDINGS: There is an ET tube projecting over the trachea. NG tube projects over the stomach. There are diffuse alveolar infiltrates in the lungs. These have improved slightly from earlier in the day. IMPRESSION: Diffuse pulmonary infiltrates in the lungs have improved slightly from earlier. Dictated by: Dictated on workstation # [id number]
--- NOTE | 2017-06-25 16:32 | Consultation ---
History of Present Illness History of Present Illness Patient Consulted On(jordan/time) 06/25/17 16:27 Time Seen by Provider: 15:58 History of Present Illness Surgery asked to consult for Venous Insufficiency; possible repositioning of Central Line. HPI per medicine: HPI: This is a 31-year-old -Malag[place] male who presents to the ER with wheezing and shortness of breath and fever 2 days following influenza diagnosis in the ER. He was prescribed Tamiflu and feels like he had worsened since that time. He was assessed in the ER and found to have bilateral pneumonia with wheezing on exam requiring admission to hospital for IV antibiotics and nebulizer treatments and IV steroids. He reports that he moved from [place] one year ago and has no local physician. 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 He reports smoking a half a pack of cigarettes. At this current time he denies any pain. He reports pain consistent with pleurisy so Toradol will be initiated along with Tussionex. When seen right now pt has been intubated and sedated; unable to ask him any questions. Per the nurse he has been unstable all day and cannot be moved downstairs. Allergies and Home Medications Allergies Coded Allergies: No Known Drug Allergies (Unverified , 06/20/17) Home Medications No Active Prescriptions or Reported Meds Patient Home Medication List Home Medication List Reviewed: Yes Past Ovrjrgd-Oujrrt-Ktdclq Hx Patient Social History Alcohol Use: Occasionally Uses Recreational Drug Use: No Smoking Status: Current Everyday Smoker Type Used: Cigarettes Recent Foreign Travel: No Contact w/Someone Who Travel: No Recent Infectious Disease Expo: No Recent Hopitalizations: No Physical Abuse Screen: No Sexual Abuse: No Immunizations Up To Date PED Vaccines UTD: Yes Seasonal Allergies Seasonal Allergies: No Surgeries History of Surgeries: No Respiratory History of Respiratory Disorde: No Cardiovascular History of Cardiac Disorders: No Neurological History of Neurological Disord: No Genitourinary History of Genitourinary Disor: No Gastrointestinal History of Gastrointestinal Di: No Musculoskeletal History of Musculoskeletal Dis: No Endocrine History of Endocrine Disorders: No HEENT History of HEENT Disorders: No Cancer History of Cancer: No Psychosocial History of Psychiatric Problem: Yes Behavioral Health Disorders: Anxiety Integumentary History of Skin or Integumenta: No Blood Transfusions History of Blood Disorders: No Reviewed Nursing Assessment Reviewed/Agree w Nursing PMH: Yes Family Medical History Significant Family History: No Pertinent Family Hx Family Medial History: Asthma 19 FATHER Cardiovascular disease 19 FATHER (ENLARGED HEART) Review of Systems-General ROS-Unable to Obtain: Pt is intubated, can go off of ROS from admit H&P. Physical Exam-General Problems Physical Exam Vital Signs Vital Signs - First Documented 06/23/17 06/23/17 06/24/17 05:59 07:36 15:14 Temp 98.1 Pulse 110 Resp 24 B/P (MAP) 146/79 (101) Pulse Ox 96 O2 Delivery Room Air O2 Flow Rate 0.50 FiO2 32 Capillary Refill : Less Than 3 Seconds General Appearance: WD/WN, mild distress (intubated) HEENT: PERRL/EOMI, No scleral icterus (R), No scleral icterus (L) Neck: No supple, No thyromegaly Respiratory: decreased breath sounds (bilateral), accessory muscle use, crackles, rales, wheezing, other (pt on vent now) Cardiovascular: no edema, no murmur, tachycardia Gastrointestinal: normal bowel sounds, soft, no organomegaly, no pulsatile mass Extremities: no pedal edema, no calf tenderness, normal capillary refill Neurologic/Psychiatric: other (pt intubated unable to assess) Skin: normal color, warm/dry Lymphatic: no adenopathy (neck, axilla or groin) Data Review Labs Laboratory Tests 06/25/17 05:30: White Blood Count 17.7H, Red Blood Count 3.30L, Hemoglobin 10.7L, Hematocrit 30L , Mean Corpuscular Volume 92, Mean Corpuscular Hemoglobin 32, Mean Corpuscular Hemoglobin Concent 35, Red Cell Distribution Width 13.3, Platelet Count 380, Mean Platelet Volume 10.0, Neutrophils (%) (Auto) 84H, Lymphocytes (%) (Auto) 9L , Monocytes (%) (Auto) 7, Eosinophils (%) (Auto) 0, Basophils (%) (Auto) 0, Neutrophils # (Auto) 14.8H, Lymphocytes # (Auto) 1.6, Monocytes # (Auto) 1.3H, Eosinophils # (Auto) 0.0, Basophils # (Auto) 0.0, Neutrophils % (Manual) 72, Lymphocytes % (Manual) 15, Monocytes % (Manual) 6, Eosinophils % (Manual) 0, Basophils % (Manual) 0, Metamyelocytes % 1, Band Neutrophils 5, Nucleated Red Blood Cells 2, Reactive Lymphocytes 1, Toxic Granulation 1+, Absolute Reticulocyte Count 10L, Percent Reticulocyte Count 0.32L, Sodium Level 139, Potassium Level 3.3L, Chloride Level 105, Carbon Dioxide Level 24, Anion Gap 10 , Blood Urea Nitrogen 18, Creatinine 0.70, Estimat Glomerular Filtration Rate > 60, BUN/Creatinine Ratio 26, Glucose Level 140H, Calcium Level 9.7, Total Bilirubin 0.6, Aspartate Amino Transf (AST/SGOT) 26, Alanine Aminotransferase ( ALT/SGPT) 34, Alkaline Phosphatase 111, B-Type Natriuretic Peptide 179.5H, Total Protein 7.2, Albumin 3.4, Triglycerides Level 462H 06/25/17 06:51: Blood Gas Puncture Site RIGHT RADIAL, Blood Gas Patient Temperature 98.5, Arterial Blood pH 7.42, Arterial Blood Partial Pressure CO2 35, Arterial Blood Partial Pressure O2 59L, Arterial Blood HCO3 23, Arterial Blood Total CO2 23.5, Arterial Blood Oxygen Saturation 91L, Arterial Blood Base Excess -1.3, Tej Test POSITIVE, Blood Gas Ventilator Setting NO, Blood Gas Inspired Oxygen 15 LPM 70% 06/25/17 07:20: Lactic Acid Level 1.95 06/25/17 07:25: 06/25/17 09:45: Urine Color YELLOW, Urine Clarity CLEAR, Urine pH 6, Urine Specific Melvin 1.015L, Urine Protein 2+H, Urine Glucose (UA) NEGATIVE, Urine Ketones NEGATIVE, Urine Nitrite NEGATIVE, Urine Bilirubin NEGATIVE, Urine Urobilinogen NORMAL, Urine Leukocyte Esterase NEGATIVE, Urine RBC (Auto) 1+H, Urine RBC 2-5H, Urine WBC 0-2, Urine Squamous Epithelial Cells 0-2, Urine Crystals PRESENTH, Urine Amorphous Sediment RARE TERESA URATESH, Urine Bacteria NEGATIVE, Urine Casts NONE , Urine Mucus NEGATIVE, Urine Culture Indicated NO 06/25/17 09:50: Blood Gas Puncture Site RIGHT RADIAL, Blood Gas Patient Temperature 98.4, Arterial Blood pH 7.23*L, Arterial Blood Partial Pressure CO2 65H, Arterial Blood Partial Pressure O2 72L, Arterial Blood HCO3 26, Arterial Blood Total CO2 28.2, Arterial Blood Oxygen Saturation 92L, Arterial Blood Base Excess -0.5, Tej Test POSITIVE, Blood Gas Ventilator Setting YES, Blood Gas Inspired Oxygen 60% 06/25/17 13:22: Blood Gas Puncture Site LEFT RAD, Blood Gas Patient Temperature 98.4, Arterial Blood pH 7.20*L, Arterial Blood Partial Pressure CO2 73*H, Arterial Blood Partial Pressure O2 85, Arterial Blood HCO3 28H, Arterial Blood Total CO2 29.8, Arterial Blood Oxygen Saturation 95, Arterial Blood Base Excess 0.3, Tej Test ARTLINE, Blood Gas Ventilator Setting YES, Blood Gas Inspired Oxygen 60% FIO2 Microbiology 06/23/17 Blood Culture - Preliminary, Resulted Streptococcus pneumoniae See Comments Assessment/Plan Assessment/Plan Assessment/Plan ARDS B/L pneumonia Hypokalemia Hypertensive crisis - resolved after Cardene drip Venous Insufficiency - s/p Right IJ triple lumen insertion I reviewed the CT and then subsequent CXR's; triple lumen was in right subclavian and now looks like it has flipped up possibly back into IJ. It would be best to take pt down to flouroscopy suite and reposition current catheter; unfortunately, pt is too unstable so I will therefore place a left IJ triple lumen with US guidance. Will wait to pull right IJ until we have checked CXR after placement of left. Clinical Quality Measures AMI/AHF: ASA po Prior to arrival: No DVT/VTE Risk/Contraindication: Risk Factor Score Per Nursin RFS Level Per Nursing on Admit: 1=Low/No VTE PPX LESLEY BONILLA DO Jun 25, 2017 16:32
--- NOTE | 2017-06-25 17:13 | Progress Note-Post Operative ---
Post-Operative Progess Note Surgeon (s)/Gluer Machine Operator (s) Surgeon LESLEY BONILLA DO Gluer Machine Operator: none Pre-Operative Diagnosis Venous Insufficiency, Hypokalemia, ARDS Post-Operative Diagnosis SAme Procedure & Operative Findings Date of Procedure 06/25/17 Procedure Performed/Findings Insertion Left IJ with US guidance Anesthesia Type local lidocaine Estimated Blood Loss Estimated blood loss (mL): less than 5 ml Specimens/Packing Specimens Removed none LESLEY BONILLA DO Jun 25, 2017 17:13
[2017-06-25 17:33] LABS: ABG BASE EXCESS 2.9 MMOL/L (-2.5-2.5); ABG OXYGEN SATURATION 97 % (94-100); ABG PCO2 63 MMHG (35-45); ABG PH 7.28 (7.37-7.43); ABG PO2 88 MMHG (79-93)
[2017-06-25 17:34] LABS: ALLENS TEST POSITIVE; INSPIRED O2 50%; PATIENT TEMP 98; VENTILATOR YES
--- NOTE | 2017-06-25 17:34 | Diagnostic Imaging Report ---
EXAM: CHEST 1 VIEW, AP/PA ONLY INDICATION: Central line placement. COMPARISON: Multiple chest radiographs from earlier today. FINDINGS: New left IJ CVC tip below SVC. A right CVC remains looped superiorly, similar to prior exams. ETT tip at the level of the clavicles. NG tube tip below the [id number]. Normal heart size. Diffuse airspace opacities throughout both lungs is stable. No pleural effusion or pneumothorax. No acute osseous findings. IMPRESSION: 1. New left IJ CVC tip below SVC. 2. Right CVC remains looped in the right neck. 3. Persistent airspace opacities throughout both lungs. Findings were discussed with Dr. Ezra Meraz at 5:22 PM on 06/25/2017. Dictated by: Dictated on workstation # [id number]
[2017-06-25] MEDS: NS IV SCH ×6 (18:03→23:54)
[2017-06-25] MEDS: ATRACURIUM IV SCH ×6 (18:03→23:54)
[2017-06-25] MEDS: amLODIPine 5 MG (NORVASC) TAB PO SCH (18:18)
[2017-06-25] MEDS: ENOXAPARIN 40 MG/0.4 ML (LOVENOX) SYR SC SCH (18:18)
[2017-06-25 21:09] LABS: BUN/CREATININE RATIO 17; CALCIUM 9.4 MG/DL (8.5-10.1); CARBON DIOXIDE 29 MMOL/L (21-32); CHLORIDE 99 MMOL/L (98-107); CREATININE SERUM 0.66 MG/DL (0.60-1.30); GFR ESTIMATED > 60; GLUCOSE 190 MG/DL (70-105); POTASSIUM 3.6 MMOL/L (3.6-5.0); SODIUM 139 MMOL/L (135-145)
[2017-06-25] MEDS ORDERED: fentaNYL (OMNICELL DRIP KIT ONLY) 250 MCG/5 ML AMP ONE (22:38)
[2017-06-25] MEDS ORDERED: NS (IVPB) 100 ML ONE (22:38)
[2017-06-25] MEDS: inSUlin (REGULAR) HUMAN 1 UNIT/0.01 ML (CHARGE PER UNIT) SC SCH (23:23)
[2017-06-26] VITALS (37 sets, daily range): BP systolic 96–196; BP diastolic 0–102
[2017-06-26] MEDS ORDERED: meTOprolol 5 MG/5 ML (LOPRESSOR) VIAL ONE ×2 (00:09→23:36)
[2017-06-26] MEDS ORDERED: meTOprolol 5 MG/5 ML (LOPRESSOR) VIAL IV ONE (00:30)
[2017-06-26] MEDS: niCARdipine IV 50 MG in NS (IVPB) 230 ML IV SCH ×3 (00:33→20:51)
[2017-06-26] MEDS: RT-ALBUTEROL/IPRATROPIUM 3 ML (DUONEB) VIAL INH SCH ×10 (01:37→22:15)
[2017-06-26] MEDS: PROPOFOL DRIP (ICU) 100 ML IV SCH ×6 (03:18→20:55)
[2017-06-26 03:27] LABS: BASOPHILS % (AUTO) 0 % (0-10); EOSINOPHILS % (AUTO) 0 % (0-10); HEMATOCRIT 32 % (40-54); HEMOGLOBIN 10.7 G/DL (13.3-17.7); LYMPHOCYTES # (AUTO) 1.8 X 10^3 (1.0-4.0); LYMPHOCYTES % (AUTO) 13 % (12-44); MEAN CORPUSCULAR HEMOGLOBIN 32 PG (25-34); MEAN CORPUSCULAR HGB CONC 34 G/DL (32-36); MEAN CORPUSCULAR VOLUME 96 FL (80-99); MEAN PLATELET VOLUME 9.8 FL (7.4-10.4); MONOCYTES # (AUTO) 1.2 X 10^3 (0.0-1.0); MONOCYTES % (AUTO) 9 % (0-12); NEUTROPHILS # (AUTO) 10.5 X 10^3 (1.8-7.8); NEUTROPHILS % (AUTO) 78 % (42-75); PLATELET COUNT 372 10^3/uL (130-400); RED BLOOD COUNT 3.31 10^6/uL (4.35-5.85); RED CELL DISTRIBUTION WIDTH 14.2 % (10.0-14.5); WHITE BLOOD COUNT 13.5 10^3/uL (4.3-11.0)
[2017-06-26 03:27] LABS: ABG BASE EXCESS 6.4 MMOL/L (-2.5-2.5); ABG OXYGEN SATURATION 99 % (94-100); ABG PCO2 53 MMHG (35-45); ABG PH 7.39 (7.37-7.43); ABG PO2 108 MMHG (79-93); ABG TCO2 32.9 MMOL/L (21.0-31.0); ALLENS TEST ART LINE; INSPIRED O2 35%; VENTILATOR YES
[2017-06-26] MEDS ORDERED: fentaNYL (OMNICELL DRIP KIT ONLY) 250 MCG/5 ML AMP ONE (03:33)
[2017-06-26] MEDS ORDERED: NS (IVPB) 100 ML ONE ×2 (03:34→05:58)
--- NOTE | 2017-06-26 03:49 | OPERATIVE REPORT ---
DATE OF SERVICE: 06/25/2017 PREOPERATIVE DIAGNOSES: 1. Venous insufficiency. 2. Bilateral pneumonia. 3. Acute respiratory distress syndrome. POSTOPERATIVE DIAGNOSES: 1. Venous insufficiency. 2. Bilateral pneumonia. 3. Acute respiratory distress syndrome. PROCEDURE: Insertion of a left IJ triple lumen catheter with ultrasound guidance. SURGEON: Ezra Meraz DO HEALTHCARE ECONOMICS MANAGER: None. ANESTHESIA: Local lidocaine. SPECIMENS: None. BLOOD LOSS: Less than 5 mL. FLUIDS: None. POSTOPERATIVE CONDITION: Stable. INDICATION FOR PROCEDURE: The patient is a 31-year-old male who unfortunately came in with bilateral pneumonia, developed acute respiratory distress syndrome, had some venous insufficiency with hypertensive, needs lot of IV drips and he had an IJ placed on the right, but it was going up into the neck. Unfortunately, because he was too unstable, not able to reposition this, needed a new one placed. FINDINGS: The patient had a left IJ placed without difficulty under ultrasound guidance and a subsequent chest x-ray showed catheter in good position. PROCEDURE NOTE: After informed consent was obtained, the patient was in his bed in the ICU. He was sterilely prepped and draped in normal fashion. Local lidocaine was used to infiltrate the left neck. Then, with ultrasound guidance, an 18 gauge finder needle was advanced under the ultrasound, watched it go into the left IJ, good flash of blood, removed the syringe, placed a guidewire down the needle using Seldinger technique, it went in easily and checked and the guide wire was going down the middle of the IJ. Removed the needle, made a stab incision with 11 blade at the guide wire and then over the guidewire, placed a dilator using Seldinger technique, went in easily, then removed this and then over the guidewire, placed the triple lumen catheter using the Seldinger technique. It went in easily, removed the guide wire, then easily aspirated and flushed all 3 ports with normal saline, placed a Biopatch and then sutured this catheter in place with 3-0 silk. Area was then cleaned and dried and a Tegaderm dressing placed. A stat chest x-ray ordered and the central line was in the correct position. We will remove the right IJ. The patient tolerated the procedure. Job ID: [id number] DocumentID: [id number] Dictated Date: 06/25/2017 17:17:46 Spinning Frame Cleaner Date: 06/26/2017 03:49:19 Dictated By: EZRA MERAZ DO
[2017-06-26 03:52] LABS: ALANINE AMINOTRANSFERASE 51 U/L (0-55); ALBUMIN 3.4 GM/DL (3.2-4.5); ALKALINE PHOSPHATASE 84 U/L (40-136); BILIRUBIN,TOTAL 0.5 MG/DL (0.1-1.0); BUN/CREATININE RATIO 22; CALCIUM 9.1 MG/DL (8.5-10.1); CARBON DIOXIDE 26 MMOL/L (21-32); CHLORIDE 102 MMOL/L (98-107); CREATININE SERUM 0.63 MG/DL (0.60-1.30); GFR ESTIMATED > 60; GLUCOSE 150 MG/DL (70-105); MAGNESIUM 2.3 MG/DL (1.8-2.4); PHOSPHORUS 2.9 MG/DL (2.3-4.7); POTASSIUM 3.6 MMOL/L (3.6-5.0); SODIUM 142 MMOL/L (135-145); TOTAL PROTEIN 7.2 GM/DL (6.4-8.2); TRIGLYCERIDES 483 MG/DL (<150)
[2017-06-26] MEDS: MAGNESIUM 1 GM/100 ML IVPB 100 ML IV SCH (03:58)
[2017-06-26] MEDS: KCL 20 MEQ TAB (K-DUR) PO SCH (03:59)
[2017-06-26] MEDS: LACTOBACILLUS Acidoph/Bulgar (LACTINEX/FLORANEX) TAB PO SCH ×3 (03:59→16:18)
[2017-06-26] MEDS: NS IV SCH ×10 (04:19→23:53)
[2017-06-26] MEDS: ATRACURIUM IV SCH ×10 (04:19→23:53)
[2017-06-26] MEDS: POTASSIUM CL 10MEQ/50ML IVPB 50 ML IV SCH ×3 (04:21→06:20)
[2017-06-26] MEDS: NS IV 1000 ML 1,000 ML IV SCH ×2 (04:29→13:22)
[2017-06-26] MEDS: inSUlin (REGULAR) HUMAN 1 UNIT/0.01 ML (CHARGE PER UNIT) SC SCH ×3 (05:01→18:02)
[2017-06-26] MEDS: methylPREDNISolone 40 MG/ML (Solu-MEDROL) VIAL IV SCH ×3 (05:01→18:02)
--- NOTE | 2017-06-26 05:39 | Pulmonary Progress Note ---
Subjective Time Seen by Provider: 05:42 Subjective/Events-last exam Pt is currently sedated. Exam Exam Vital Signs Date Time Temp Pulse Resp B/P (MAP) Pulse Ox O2 Delivery O2 Flow Rate FiO2 06/26/17 04:02 97.7 06/26/17 03:56 94 24 100 35 06/26/17 03:54 98 Mechanical Ventilator 35 06/26/17 03:18 99.1 101 24 125/69 98 Mechanical Ventilator 35.00 06/26/17 03:00 92 24 137/79 (98) 100 Mechanical Ventilator 35.00 06/26/17 02:00 99 24 111/64 (80) 99 Mechanical Ventilator 35.00 06/26/17 01:54 99.1 06/26/17 01:37 101 24 98 35 06/26/17 01:00 101 06/26/17 01:00 101 24 119/64 (82) 97 Mechanical Ventilator 35.00 06/26/17 00:45 102 24 119/63 (81) 97 Mechanical Ventilator 35.00 06/26/17 00:30 100 24 128/68 (88) 97 Mechanical Ventilator 35.00 06/26/17 00:15 124 23 181/86 (117) 96 Mechanical Ventilator 35.00 06/26/17 00:00 98 Mechanical Ventilator 35 06/26/17 00:00 125 24 177/89 (118) 97 Mechanical Ventilator 35.00 06/25/17 23:51 96.9 107 24 164/89 99 Mechanical Ventilator 35.00 06/25/17 23:45 107 24 164/89 (114) 99 Mechanical Ventilator 35.00 06/25/17 23:41 110 24 99 35 06/25/17 23:30 110 24 164/93 (116) 99 Mechanical Ventilator 35.00 06/25/17 23:15 97 24 119/70 (86) 99 Mechanical Ventilator 35.00 06/25/17 23:00 99 23 113/65 (81) 100 Mechanical Ventilator 35.00 06/25/17 22:45 100 24 116/67 (83) 100 Mechanical Ventilator 35.00 06/25/17 22:30 98 23 117/67 (84) 100 Mechanical Ventilator 35.00 18 22:15 100 125/70 (88) 99 Mechanical Ventilator 35.00 06/25/17 22:04 96 25 99 35 3/5/18 22:00 96 131/75 (93) 100 Mechanical Ventilator 35.00 3/5/18 21:45 102 20 149/89 (109) 96 Mechanical Ventilator 35.00 3/18 21:30 96 26 129/79 (96) 100 Mechanical Ventilator 35.00 3/5/18 21:15 96 25 125/78 (94) 100 Mechanical Ventilator 35.00 3/5/18 21:00 96 26 112/80 (91) 100 Mechanical Ventilator 35.00 3/18 20:45 96.9 93 24 124/84 100 Mechanical Ventilator 35.00 3/18 20:45 99 26 119/81 (94) 100 Mechanical Ventilator 35.00 318 20:32 Mechanical Ventilator 35.00 3/18 20:30 94 28 129/85 (100) 100 Mechanical Ventilator 40.00 06/25/18 20:28 93 24 100 40 3//18 20:15 96 28 125/87 (100) 100 Mechanical Ventilator 40.00 18 20:00 100 Mechanical Ventilator 40 06/25/18 20:00 95 25 141/85 (103) 98 Mechanical Ventilator 40.00 18 19:45 96 34 152/94 (113) 100 Mechanical Ventilator 40.00 18 19:35 96.9 103 31 139/95 (110) 100 Mechanical Ventilator 40.00 06/25/18 19:30 99 28 127/90 (102) 100 Mechanical Ventilator 40.00 06/25/18 19:15 101 27 126/89 (101) 100 Mechanical Ventilator 40.00 18 19:00 101 25 143/89 (107) 100 Mechanical Ventilator 40.00 3/18 19:00 101 3//18 18:32 98 24 100 50 3/18 18:00 112 24 181/94 (123) 100 Mechanical Ventilator 50.00 3/18 17:18 152/85 3/18 17:00 107 22 124/72 (89) 100 Mechanical Ventilator 50.00 3//18 16:15 110 22 98 50 3//18 16:00 98.0 18 16:00 112 20 135/72 (93) 99 Mechanical Ventilator 50.00 3/18 15:00 115 22 196/110 (138) 97 Mechanical Ventilator 60.00 06/25/17 14:21 125 20 94 60 06/25/17 14:00 131 34 190/113 (138) 95 Mechanical Ventilator 60.00 06/25/17 13:58 157/87 06/25/17 13:00 116 06/25/17 13:00 116 19 165/111 (129) 98 Mechanical Ventilator 60.00 06/25/17 12:26 113 20 96 60 06/25/17 12:00 112 19 171/107 (128) 96 Mechanical Ventilator 60.00 06/25/17 12:00 97.8 06/25/17 11:59 98.9 109 20 208/122 95 Mechanical Ventilator 60.00 06/25/17 11:00 111 20 217/131 (159) 94 Mechanical Ventilator 60.00 06/25/17 10:34 108 18 95 60 06/25/17 10:25 97.8 120 06/25/17 10:22 98 17 216/117 (150) 94 Mechanical Ventilator 60.00 06/25/17 09:00 90 Vapotherm 20.00 70 06/25/17 09:00 95 18 143/80 (101) 100 Mechanical Ventilator 60.00 06/25/17 08:20 105 38 95 60 06/25/17 08:00 90 45 173/108 (129) 97 Mechanical Ventilator 60.00 06/25/17 07:00 70 06/25/17 07:00 65 41 175/125 (142) 97 Vapotherm 70.00 15.00 06/25/17 07:00 98.4 06/25/17 06:22 92 Vapotherm 15.00 70 I & O 06/26/17 07:00 Intake Total 1415 ml Output Total 9300 ml Balance -7885 ml General Appearance: WD/WN, Moderate Distress (sedated on vent ) HEENT: PERRL/EOMI, Normal ENT Inspection, Pharynx Normal Neck: Full Range of Motion, Normal Inspection, Non Tender, Supple, Carotid Bruit Respiratory: Accessory Muscle Use, Crackles, Rhonci Cardiovascular: Regular Rate, Rhythm, No Murmur Capillary Refill: Less Than 3 Seconds Gastrointestinal: normal bowel sounds, soft, no organomegaly, no pulsatile mass Extremity: Non Tender, No Calf Tenderness, No Pedal Edema Neurologic/Psychiatric: Alert, Oriented x3 Skin: Normal Color, Warm/Dry Lymphatic: No Adenopathy Results Lab Laboratory Tests 06/25/17 05:30 06/25/17 20:45 06/26/17 03:15 Assessment/Plan Assessment/Plan Acute Respiratory failure Bilateral pneumonia with probable ARDS -CT scan reviewed and shows extensive bilateral infiltrates. Radiology is questioning pulmonary hemorrage. Will schedule bronchoscopy for today -Pt is requiring a lot of sedation. will attempt to turn Diprivan and Fentanyl down. Will start Versed gtt if needed -Cont vent management. -Oxygen -echocardiogram pending -Check HIV Strep pneumonia -Continue Rocephin -Repeat zimmerman cultures Anemia -Check peripheral spear -monitor 255 Critical Care: Critically Ill Patient ERIC SEALS DO Jun 26, 2017 05:39
[2017-06-26] MEDS ORDERED: MIDAZOLAM FOR DRIPS 10 MG/2 ML VIAL ONE (05:58)
[2017-06-26] MEDS ORDERED: LIDOCAINE PF 1% 2 ML AMP INJ ONE (06:00)
[2017-06-26] MEDS ORDERED: LIDOCAINE 4% INJ (XYLOCAINE) 5ML AMP INJ ONE (06:00)
[2017-06-26] MEDS: MIDAZOLAM INJECTION FOR DRIPS 50 MG in NS (IVPB) 90 ML IV SCH (06:42)
--- NOTE | 2017-06-26 07:38 | Diagnostic Imaging Report ---
INDICATION: Dyspnea. Comparison made with prior examination from 06/25/2017. FINDINGS: The heart size is stable. There is persistent diffuse bilateral airspace disease. Underlying central pulmonary venous congestion cannot be excluded. There is no pleural effusion or pneumothorax. Lines and tubes are in satisfactory position. IMPRESSION: Persistent diffuse bilateral airspace disease. Some underlying cardiopulmonary venous congestion cannot be excluded. Dictated by: Dictated on workstation # [id number]
--- NOTE | 2017-06-26 07:41 | Progress Note-Hospitalist ---
Subjective HPI/CC On Admission Date Seen by Provider: Jun 26, 2017 Time Seen by Provider: 07:20 CC: Pneumonia following influenza Subjective/Events-last exam Pt is sedated and intubated and unable to provide ROS. No family at bedside. Discussed with RN. No issues with ETT over night since reintubated. BP was elevated and necessitated 1 dose Lopressor in addition to cardene gtt. Plan for Bronch today per Dr Hernandez. Objective Exam Vital Signs Vital Signs Date Time Temp Pulse Resp B/P (MAP) Pulse Ox O2 Delivery O2 Flow Rate FiO2 06/23/17 05:59 98.1 110 24 146/79 (101) 96 06/23/17 05:59 Room Air 06/23/17 07:36 0.50 06/24/17 15:14 32 Capillary Refill : Less Than 3 Seconds General Appearance: Other (ill appearing, intubated) HEENT: Other (OG in place- ETT in place) Respiratory: Crackles, Rhonci, Other (intubated) Cardiovascular: Regular Rate, Rhythm, No JVD, No Murmur Gastrointestinal: Normal Bowel Sounds, Non Tender, Soft Extremity: Non Tender, No Calf Tenderness, No Pedal Edema Neurologic/Psychiatric: Other (sedated and paralyzed) Skin: Normal Color, Warm/Dry, Tattoos/Piercings Results/Procedures Lab Laboratory Tests 06/25/17 20:45 06/26/17 03:15 Assessment/Plan Assessment and Plan Assess & Plan/Chief Complaint Acute Respiratory Failure Critical Care: Critically Ill Patient Diagnosis/Problems Diagnosis/Problems (1) Acute respiratory failure Status: Acute Assessment & Plan: secondary to ARDS from strep pneumonia post influenza pneumonia Continue on Rocephin and Azithro Day 4 Pulm consulted, appreciate recs Intubated this AM- PEEP of 10, FiO2 .30, RR24, TV 500 Triglyceride 483- minimal change from yesterday- will recheck in AM Nimbex for paralytics Versed for sedation as well CXR shows extensive airspace disease consistent with ARDS Qualifiers: Qualified Codes: J96.01 - Acute respiratory failure with hypoxia (2) ARDS (adult respiratory distress syndrome) Status: Acute Assessment & Plan: As above Low TV as able Monitor I/Os- Lasix as needed Pulm consulted, appreciate recs (3) Streptococcal pneumonia Status: Acute Assessment & Plan: Strep grew in all blood cultures Continue abx as above Echo ordered HIV negative Cont probiotic (4) Asthma Status: Chronic Assessment & Plan: Unsure of baseline Continue Steroids and MAT protocol Qualifiers: Qualified Codes: J45.909 - Unspecified asthma, uncomplicated (5) Bacteremia Assessment & Plan: Abx as above (6) Essential (primary) hypertension Status: Chronic Assessment & Plan: Currently on cardene gtt due to severely elevated BPs Attempt to titrate today Continue Amlodipine and switched to via OG (7) Prophylactic measure Assessment & Plan: Lovenox Protonix Saline lock Day #2 NPO Dietary consulted CAIN BURRELL MD Jun 26, 2017 07:41
[2017-06-26] MEDS: fentaNYL INJECTION 1,250 MCG in NS (IVPB) 250 ML IV SCH ×2 (07:59→18:05)
[2017-06-26] MEDS: AZITHROMYCIN 500 MG/NS 250 ML IVPB IV SCH ×2 (08:21)
--- NOTE | 2017-06-26 08:24 | Pulmonary Procedures ---
Pulmonary Procedures Date of Procedure Date of Service: Jun 26, 2017 Bronch Bronchoscopy with bronchoalveolar lavage (BAL), transbronchial washes Preop DX r/o pulm hemorrage Postop DX: No pulmonary Hemorrage. Pt did have copious amounts of thick copious sputum. Complications: none After informed consent obtained and formal time out pt was sedated using Fentanyl diprivan and Versed. Bronchoscope was advanced through the ET tube. An anatomical tour was undertaken down to the segmental bronchi bilaterally. No pulmonary Hemorrage. Pt did have copious amounts of thick copious sputum. No endobronchial lesions noted. From the RML a bronchoalveolar lavage (BAL), transbronchial washes were obtained. Pt tolerated procedure well. No complications noted. Stat CXR is pending. Time of Intubation: 08:21 ERIC SEALS DO Jun 26, 2017 08:24
[2017-06-26] MEDS: PANTOPRAZOLE 40 MG/10 ML (PROTONIX) VIAL IV SCH (09:14)
[2017-06-26] MEDS: amLODIPine 5 MG (NORVASC) TAB PO SCH (09:14)
[2017-06-26] MEDS: HYDROCODONE/CHLOR 10MG/5 ML (TUSSIONEX SUSP) 5ML UDC PO SCH ×2 (09:15→21:02)
[2017-06-26] MEDS: cefTRIAXone 1 GM/NS 100 ML IVPB IV SCH ×2 (09:15)
--- NOTE | 2017-06-26 09:46 | Diagnostic Imaging Report ---
INDICATION: Status post bronchoscopy. COMPARISON: Earlier same day. FINDINGS: Single frontal radiographic view of the chest was obtained and demonstrates indwelling endotracheal tube with tip at the clavicular heads. Enteric tube extends inferiorly beyond the [id number]. Left internal jugular central venous catheter is stable in position. Cardiac silhouette and pulmonary vasculature stable. Lungs continue to show diffuse bilateral infiltrates. Overall aeration is stable. No large effusion or pneumothorax is seen. Bony structures show no acute adverse interval change. IMPRESSION: 1. Stable exam of the chest showing bilateral diffuse patchy infiltrates. Continued followup is recommended. 2. Lines and tubes as above. Dictated by: Dictated on workstation # [id number]
[2017-06-26] MEDS: aCETylcysteine 20% (MUCOMYST) 30ML SOLN VIAL INH SCH ×4 (10:43→22:15)
[2017-06-26] MEDS: ENOXAPARIN 40 MG/0.4 ML (LOVENOX) SYR SC SCH (16:13)
[2017-06-26] MEDS: hydrALAZINE (APESOLINE) 20 MG/ML VIAL IV PRN (23:11)
[2017-06-27] VITALS (37 sets, daily range): BP systolic 105–178; BP diastolic 56–98
[2017-06-27] MEDS ORDERED: meTOprolol 5 MG/5 ML (LOPRESSOR) VIAL IV ONE
[2017-06-27] MEDS: inSUlin (REGULAR) HUMAN 1 UNIT/0.01 ML (CHARGE PER UNIT) SC SCH ×2 (00:02→05:56)
[2017-06-27] MEDS: methylPREDNISolone 40 MG/ML (Solu-MEDROL) VIAL IV SCH ×4 (00:02→17:39)
[2017-06-27] MEDS: NS IV 1000 ML 1,000 ML IV SCH ×3 (00:18→19:32)
[2017-06-27] MEDS: PROPOFOL DRIP (ICU) 100 ML IV SCH ×7 (00:41→18:19)
[2017-06-27] MEDS ORDERED: LORazepam INJ 2 MG/ML (ATIVAN) VIAL ONE (02:51)
[2017-06-27 03:06] LABS: ABG BASE EXCESS 7.6 MMOL/L (-2.5-2.5); ABG OXYGEN SATURATION 76 % (94-100); ABG PO2 52 MMHG (79-93); ABG TCO2 36.2 MMOL/L (21.0-31.0)
[2017-06-27 03:09] LABS: ABG PCO2 75 MMHG (35-45); ABG PH 7.28 (7.37-7.43); ALLENS TEST ART LINE; INSPIRED O2 30%; PATIENT TEMP 99.6; VENTILATOR YES
[2017-06-27] MEDS ORDERED: FUROSEMIDE 40 MG/4 ML INJ (LASIX) ONE (03:23)
[2017-06-27] MEDS ORDERED: fentaNYL INJECTION 100 MCG/2 ML AMP IVP ONE (03:30)
[2017-06-27] MEDS ORDERED: FUROSEMIDE 40 MG/4 ML INJ (LASIX) IVP ONE (03:30)
[2017-06-27] MEDS ORDERED: LORazepam INJ 2 MG/ML (ATIVAN) VIAL IVP ONE (03:30)
[2017-06-27 03:36] LABS: BASOPHILS # (AUTO) 0.1 10^3/uL (0.0-0.1); BASOPHILS % (AUTO) 0 % (0-10); EOSINOPHILS % (AUTO) 0 % (0-10); HEMATOCRIT 36 % (40-54); LYMPHOCYTES % (AUTO) 15 % (12-44); MEAN CORPUSCULAR HEMOGLOBIN 33 PG (25-34); MEAN CORPUSCULAR HGB CONC 34 G/DL (32-36); MEAN CORPUSCULAR VOLUME 97 FL (80-99); MEAN PLATELET VOLUME 9.8 FL (7.4-10.4); MONOCYTES # (AUTO) 2.3 X 10^3 (0.0-1.0); MONOCYTES % (AUTO) 11 % (0-12); NEUTROPHILS # (AUTO) 15.1 X 10^3 (1.8-7.8); NEUTROPHILS % (AUTO) 74 % (42-75); PLATELET COUNT 425 10^3/uL (130-400); RED BLOOD COUNT 3.67 10^6/uL (4.35-5.85); RED CELL DISTRIBUTION WIDTH 14.2 % (10.0-14.5); WHITE BLOOD COUNT 20.5 10^3/uL (4.3-11.0)
[2017-06-27 03:59] LABS: BAND NEUTROPHILS 6 %; BASOPHILS % (MANUAL) 0 %; EOSINOPHILS % (MANUAL) 0 %; LYMPHOCYTES % (MANUAL) 16 %; METAMYELOCYTES % 1 %; MONOCYTES % (MANUAL) 4 %; NEUTROPHILS % (MANUAL) 73 %
[2017-06-27 04:00] LABS: ANISOCYTOSIS SLIGHT
[2017-06-27 04:05] LABS: BUN/CREATININE RATIO 25; CALCIUM 9.6 MG/DL (8.5-10.1); CARBON DIOXIDE 31 MMOL/L (21-32); CHLORIDE 101 MMOL/L (98-107); CREATININE SERUM 0.65 MG/DL (0.60-1.30); GFR ESTIMATED > 60; GLUCOSE 177 MG/DL (70-105); MAGNESIUM 3.2 MG/DL (1.8-2.4); PHOSPHORUS 3.1 MG/DL (2.3-4.7); POTASSIUM 3.6 MMOL/L (3.6-5.0); SODIUM 142 MMOL/L (135-145)
--- NOTE | 2017-06-27 05:10 | Pulmonary Progress Note ---
Subjective Time Seen by Provider: 05:13 Subjective/Events-last exam PT has been hypertensive with SBP >200 through the night. Exam Exam Vital Signs Date Time Temp Pulse Resp B/P (MAP) Pulse Ox O2 Delivery O2 Flow Rate FiO2 06/27/17 04:01 98 Mechanical Ventilator 45 06/27/17 04:00 104 23 117/60 (79) 100 Mechanical Ventilator 45.00 06/27/17 04:00 99.5 105 24 108/56 100 Mechanical Ventilator 30.00 06/27/17 03:40 105 24 100 30 06/27/17 03:40 Mechanical Ventilator 45.00 06/27/17 03:00 109 24 137/73 (94) 100 Mechanical Ventilator 30.00 06/27/17 02:20 82 24 99 25 06/27/17 02:00 80 23 131/74 (93) 100 Mechanical Ventilator 30.00 06/27/17 01:00 90 06/27/17 01:00 90 23 116/66 (83) 97 Mechanical Ventilator 25.00 06/27/17 00:50 89 24 97 25 06/27/17 00:41 99.5 109 24 125/68 98 Mechanical Ventilator 25.00 06/27/17 00:00 95 23 127/71 (89) 96 Mechanical Ventilator 25.00 06/26/17 23:58 99.5 06/26/17 23:58 98 Mechanical Ventilator 25 06/26/17 23:21 100.3 06/26/17 23:00 109 24 125/68 (87) 97 Mechanical Ventilator 25.00 06/26/17 22:15 102 24 97 25 06/26/17 22:00 104 23 143/78 (99) 95 Mechanical Ventilator 25.00 06/26/17 21:00 106 26 148/81 (103) 97 Mechanical Ventilator 25.00 06/26/17 20:55 98.0 96 24 124/69 98 Mechanical Ventilator 25.00 06/26/17 20:50 102 25 96 25 06/26/17 20:00 98 Mechanical Ventilator 25 06/26/17 20:00 97 24 126/71 (89) 97 Mechanical Ventilator 25.00 06/26/17 19:11 98.0 96 24 124/69 (87) 98 Mechanical Ventilator 25.00 06/26/17 19:09 96 24 98 25 06/26/17 19:00 100 3/6/18 18:00 98 24 114/63 (80) 98 Mechanical Ventilator 25.00 18 17:29 129/72 18 17:00 101 23 117/63 (81) 98 Mechanical Ventilator 25.00 18 16:00 96 24 99 25 3/18 16:00 97 23 96/58 (71) 99 Mechanical Ventilator 25.00 06/26/17 16:00 98.5 101 23 127/67 (87) 98 Mechanical Ventilator 25.00 06/26/17 16:00 98 Mechanical Ventilator 25 18 15:00 102 23 97/59 (72) 98 Mechanical Ventilator 25.00 06/26/17 14:46 25 06/26/17 14:42 100 24 99 30 06/26/17 14:42 Mechanical Ventilator 25.00 06/26/17 14:00 105 23 119/63 (81) 96 Mechanical Ventilator 35.00 06/26/17 13:22 152/77 06/26/17 13:00 113 32 136/88 (104) 92 Mechanical Ventilator 35.00 06/26/17 13:00 114 06/26/17 12:40 98.4 06/26/17 12:34 108 24 94 30 06/26/17 12:00 113 23 111/57 (75) 95 Mechanical Ventilator 35.00 06/26/17 12:00 98 Mechanical Ventilator 30 06/26/17 11:00 129 23 189/90 (123) 95 Mechanical Ventilator 35.00 06/26/17 10:47 128 24 95 30 06/26/17 10:00 118 24 180/88 (118) 96 Mechanical Ventilator 35.00 06/26/17 09:42 182/86 06/26/17 09:10 115 24 95 30 06/26/17 09:00 118 23 186/91 (122) 95 Mechanical Ventilator 35.00 06/26/17 08:10 24 06/26/17 08:00 99.1 06/26/17 08:00 98 Mechanical Ventilator 30 06/26/17 08:00 112 11 196/102 (133) 98 Mechanical Ventilator 35.00 06/26/17 07:00 98 06/26/17 07:00 96 24 131/68 (89) 99 Mechanical Ventilator 35.00 06/26/17 06:42 97.7 92 23 156/88 99 Mechanical Ventilator 35.00 06/26/17 06:39 95 24 99 30 06/26/17 06:26 97.7 92 23 156/88 99 Mechanical Ventilator 35.00 06/26/17 06:00 92 23 156/88 (110) 99 Mechanical Ventilator 35.00 I & O 06/27/17 07:00 Intake Total 2091 ml Output Total 4575 ml Balance -2484 ml General Appearance: Other (sedated on vent) HEENT: Other (OG in place- ETT in place) Neck: Full Range of Motion, Normal Inspection, Non Tender, Supple, Carotid Bruit Respiratory: Crackles, Rhonci, Other (intubated) Cardiovascular: Regular Rate, Rhythm, No JVD, No Murmur Capillary Refill: Less Than 3 Seconds Gastrointestinal: normal bowel sounds, soft, no organomegaly, no pulsatile mass Extremity: Non Tender, No Calf Tenderness, No Pedal Edema Neurologic/Psychiatric: Other (sedated and paralyzed) Skin: Normal Color, Warm/Dry, Tattoos/Piercings Lymphatic: No Adenopathy Results Lab Laboratory Tests 06/25/17 05:30 06/25/17 20:45 06/26/17 03:15 06/27/17 03:00 Assessment/Plan Assessment/Plan Acute Respiratory failure with mucous plugging -Continue SVNs, Mucomyst Bilateral pneumonia with ARDS s/p Bronch - no signs of hemorrhage -Cont vent management. -Oxygen Strep pneumonia with worsening leukocytosis, -- Tm 100.3 -Continue Rocephin -Start Vancomycin -repeat Zimmerman cultures -Repeat zimmerman cultures Hypertensive urgency -Monitor -Sedation adjusted -Lasix given Anemia -Check peripheral spear -monitor 233 Critical Care: Critically Ill Patient ERIC SEALS DO Jun 27, 2017 05:10
[2017-06-27] MEDS ORDERED: PHARMACY TO DOSE IV SCH (05:15)
[2017-06-27 05:28] LABS: BILIRUBIN,URINE NEGATIVE (NEGATIVE); CLARITY,URINE CLEAR; COLOR,URINE YELLOW; GLUCOSE, URINE (UA) NEGATIVE (NEGATIVE); KETONES,URINE NEGATIVE (NEGATIVE); LEUKOCYTE ESTERASE ,URINE NEGATIVE (NEGATIVE); NITRITE,URINE NEGATIVE (NEGATIVE); PH,URINE 6 (5-9); PROTEIN,URINE NEGATIVE (NEGATIVE); UROBILINOGEN,URINE NORMAL (NORMAL)
[2017-06-27 05:29] LABS: BACTERIA,URINE NEGATIVE /HPF; WBC,URINE RARE /HPF
[2017-06-27 05:33] LABS: ABG BASE EXCESS 7.3 MMOL/L (-2.5-2.5); ABG OXYGEN SATURATION 99 % (94-100); ABG PCO2 44 MMHG (35-45); ABG PH 7.46 (7.37-7.43); ABG PO2 95 MMHG (79-93); ABG TCO2 32.8 MMOL/L (21.0-31.0)
[2017-06-27 05:34] LABS: ALLENS TEST YES-POS; INSPIRED O2 45%; PATIENT TEMP 97.7; VENTILATOR YES
[2017-06-27 05:36] LABS: BASOPHILS # (AUTO) 0.1 10^3/uL (0.0-0.1); BASOPHILS % (AUTO) 0 % (0-10); EOSINOPHILS % (AUTO) 0 % (0-10); HEMATOCRIT 31 % (40-54); HEMOGLOBIN 10.6 G/DL (13.3-17.7); LYMPHOCYTES # (AUTO) 1.9 X 10^3 (1.0-4.0); LYMPHOCYTES % (AUTO) 13 % (12-44); MEAN CORPUSCULAR HEMOGLOBIN 33 PG (25-34); MEAN CORPUSCULAR HGB CONC 35 G/DL (32-36); MEAN CORPUSCULAR VOLUME 96 FL (80-99); MEAN PLATELET VOLUME 9.7 FL (7.4-10.4); MONOCYTES # (AUTO) 1.1 X 10^3 (0.0-1.0); MONOCYTES % (AUTO) 8 % (0-12); NEUTROPHILS # (AUTO) 11.8 X 10^3 (1.8-7.8); NEUTROPHILS % (AUTO) 79 % (42-75); PLATELET COUNT 386 10^3/uL (130-400); WHITE BLOOD COUNT 14.9 10^3/uL (4.3-11.0)
[2017-06-27] MEDS: POTASSIUM CL 10MEQ/50ML IVPB 50 ML IV SCH ×3 (05:48→06:53)
[2017-06-27] MEDS: MAGNESIUM 1 GM/100 ML IVPB 100 ML IV SCH (05:51)
[2017-06-27] MEDS: MIDAZOLAM INJECTION FOR DRIPS 50 MG in NS (IVPB) 90 ML IV SCH ×3 (05:52→18:39)
[2017-06-27] MEDS: LACTOBACILLUS Acidoph/Bulgar (LACTINEX/FLORANEX) TAB PO SCH ×3 (05:52→16:30)
[2017-06-27] MEDS: niCARdipine IV 50 MG in NS (IVPB) 230 ML IV SCH ×2 (05:52→17:34)
[2017-06-27] MEDS: KCL 20 MEQ TAB (K-DUR) PO SCH (05:52)
[2017-06-27] MEDS: aCETylcysteine 20% (MUCOMYST) 30ML SOLN VIAL INH SCH ×6 (06:49→22:01)
[2017-06-27] MEDS ORDERED: VANCOMYCIN 2000 MG/NS 500 ML IVPB IV NR ×2 (06:49)
[2017-06-27] MEDS: RT-ALBUTEROL/IPRATROPIUM 3 ML (DUONEB) VIAL INH SCH ×12 (06:49→22:01)
--- NOTE | 2017-06-27 07:34 | Progress Note-Hospitalist ---
Subjective HPI/CC On Admission Date Seen by Provider: Jun 27, 2017 Time Seen by Provider: 07:15 CC: Pneumonia following influenza Subjective/Events-last exam Pt sedated and intubated unable to provide ROS. Discussed with RN. Had very elevated BPs overnight. Paralytics turned off and appeared to be under-sedated. Sedation now increased and resting comfortably without paralytics. No other concerns per RN. Objective Exam Vital Signs Vital Signs Date Time Temp Pulse Resp B/P (MAP) Pulse Ox O2 Delivery O2 Flow Rate FiO2 06/23/17 05:59 98.1 110 24 146/79 (101) 96 06/23/17 05:59 Room Air 06/23/17 07:36 0.50 06/24/17 15:14 32 Capillary Refill : Less Than 3 Seconds General Appearance: Other (intubated, sedated) HEENT: Other (ETT in place, OG in place) Respiratory: Rhonci, Wheezing Cardiovascular: Regular Rate, Rhythm, No Murmur Gastrointestinal: Normal Bowel Sounds, Non Tender, Soft Extremity: Normal Capillary Refill, No Pedal Edema Neurologic/Psychiatric: Other (sedated) Skin: Normal Color, Warm/Dry, Tattoos/Piercings Results/Procedures Lab Laboratory Tests 06/27/17 03:00 06/27/17 05:30 Assessment/Plan Assessment and Plan Assess & Plan/Chief Complaint Acute Respiratory Failure Critical Care: Critically Ill Patient Diagnosis/Problems Diagnosis/Problems (1) Acute respiratory failure Status: Acute Assessment & Plan: secondary to ARDS from strep pneumonia post influenza pneumonia Continue on Rocephin and Azithro Day 5 Vanc added today Pulm consulted, appreciate recs Intubated Triglyceride pending - minimal change from yesterday- will recheck in AM Versed, Fentanyl, Propofol for sedation as well CXR shows extensive airspace disease consistent with ARDS Qualifiers: Qualified Codes: J96.01 - Acute respiratory failure with hypoxia (2) ARDS (adult respiratory distress syndrome) Status: Acute Assessment & Plan: As above Low TV as able Monitor I/Os- Lasix as needed Pulm consulted, appreciate recs Vent setting unchanged from yesterday (3) Streptococcal pneumonia Status: Acute Assessment & Plan: Strep grew in all blood cultures on presentation Repeat now negative Continue abx as above Echo ordered- report still pending HIV negative Cont probiotic (4) Asthma Status: Chronic Assessment & Plan: Unsure of baseline Continue Steroids and MAT protocol Qualifiers: Qualified Codes: J45.909 - Unspecified asthma, uncomplicated (5) Bacteremia Status: Resolved Assessment & Plan: Abx as above (6) Essential (primary) hypertension Status: Chronic Assessment & Plan: Amlodipine via OG Hydralzine prn BP much improved with better sedation (7) Prophylactic measure Assessment & Plan: Lovenox Protonix Saline lock Enteral feeds started- [facility] 15ml/hr CAIN BURRELL MD Jun 27, 2017 7:34 am
--- NOTE | 2017-06-27 07:35 | Diagnostic Imaging Report ---
INDICATION: Dyspnea. COMPARISON: 06/26/2017. FINDINGS: Semiupright portable view of the chest is obtained. Endotracheal tube is unchanged. Nasogastric tube is unchanged. There is a left IJ line the tip of which appears to be in the mid superior vena cava also stable. Heart size appears unremarkable. Pulmonary vasculature appear stable. There is no pneumothorax or pleural fluid suspected. There are persistent bilateral diffuse alveolar infiltrates although moderately improved from the prior study. No new abnormality is seen. IMPRESSION: There has been unfavorable progress since the recent prior study. There are persistent moderately improved diffuse alveolar infiltrates. Lines and tubes appear stable. Dictated by: Dictated on workstation # [id number]
[2017-06-27] MEDS: HYDROCODONE/CHLOR 10MG/5 ML (TUSSIONEX SUSP) 5ML UDC PO SCH ×2 (08:21→21:30)
[2017-06-27] MEDS: PANTOPRAZOLE 40 MG/10 ML (PROTONIX) VIAL IV SCH (08:21)
[2017-06-27] MEDS: amLODIPine 5 MG (NORVASC) TAB PO SCH (08:21)
[2017-06-27] MEDS: AZITHROMYCIN 500 MG/NS 250 ML IVPB IV SCH ×2 (08:35)
[2017-06-27] MEDS: cefTRIAXone 1 GM/NS 100 ML IVPB IV SCH ×2 (09:30)
[2017-06-27] MEDS: fentaNYL INJECTION 1,250 MCG in NS (IVPB) 250 ML IV SCH (10:44)
[2017-06-27] MEDS: inSUlin ASPART (NovoLOG) 1 UNIT/0.01 ML (CHARGE PER UNIT) SC SCH ×3 (11:06→21:34)
[2017-06-27] MEDS: ENOXAPARIN 40 MG/0.4 ML (LOVENOX) SYR SC SCH (16:35)
[2017-06-27] MEDS ORDERED: VANCOMYCIN 1500 MG/NS 500 ML IVPB IV SCH ×2 (19:00)
[2017-06-27 20:04] LABS: ABG BASE EXCESS 3.3 MMOL/L (-2.5-2.5); ABG OXYGEN SATURATION 95 % (94-100); ABG PCO2 35 MMHG (35-45); ABG PO2 67 MMHG (79-93); ABG TCO2 27.5 MMOL/L (21.0-31.0)
[2017-06-27 20:05] LABS: ALLENS TEST YES-POS; INSPIRED O2 2L; PATIENT TEMP 99.1; VENTILATOR NO
[2017-06-27] MEDS: hydrALAZINE (APESOLINE) 20 MG/ML VIAL IV PRN (21:57)
[2017-06-28] VITALS (23 sets, daily range): BP systolic 133–163; BP diastolic 69–100
[2017-06-28] MEDS: RT-ALBUTEROL/IPRATROPIUM 3 ML (DUONEB) VIAL INH SCH ×13 (00:10→23:38)
[2017-06-28] MEDS: methylPREDNISolone 40 MG/ML (Solu-MEDROL) VIAL IV SCH ×4 (00:16→17:38)
[2017-06-28] MEDS: aCETylcysteine 20% (MUCOMYST) 30ML SOLN VIAL INH SCH ×6 (02:00→23:29)
[2017-06-28] MEDS: niCARdipine IV 50 MG in NS (IVPB) 230 ML IV SCH (02:24)
[2017-06-28 03:07] LABS: BASOPHILS # (AUTO) 0.1 10^3/uL (0.0-0.1); BASOPHILS % (AUTO) 0 % (0-10); EOSINOPHILS % (AUTO) 0 % (0-10); HEMATOCRIT 34 % (40-54); HEMOGLOBIN 11.8 G/DL (13.3-17.7); LYMPHOCYTES # (AUTO) 1.7 X 10^3 (1.0-4.0); LYMPHOCYTES % (AUTO) 9 % (12-44); MEAN CORPUSCULAR HEMOGLOBIN 33 PG (25-34); MEAN CORPUSCULAR HGB CONC 35 G/DL (32-36); MEAN CORPUSCULAR VOLUME 94 FL (80-99); MEAN PLATELET VOLUME 9.6 FL (7.4-10.4); MONOCYTES # (AUTO) 1.2 X 10^3 (0.0-1.0); MONOCYTES % (AUTO) 6 % (0-12); NEUTROPHILS # (AUTO) 15.8 X 10^3 (1.8-7.8); NEUTROPHILS % (AUTO) 84 % (42-75); PLATELET COUNT 435 10^3/uL (130-400); RED BLOOD COUNT 3.59 10^6/uL (4.35-5.85); RED CELL DISTRIBUTION WIDTH 13.6 % (10.0-14.5); WHITE BLOOD COUNT 18.7 10^3/uL (4.3-11.0)
[2017-06-28 03:18] LABS: ABG BASE EXCESS 3.3 MMOL/L (-2.5-2.5); ABG OXYGEN SATURATION 97 % (94-100); ABG PCO2 33 MMHG (35-45); ABG PH 7.51 (7.37-7.43); ABG PO2 78 MMHG (79-93); ABG TCO2 27.5 MMOL/L (21.0-31.0)
[2017-06-28 03:21] LABS: ALLENS TEST ART LINE
[2017-06-28 03:22] LABS: INSPIRED O2 10L 40% FIO2 VAPOTHE; PATIENT TEMP 96.9; VENTILATOR YES
[2017-06-28 04:11] LABS: BUN/CREATININE RATIO 33; CALCIUM 8.6 MG/DL (8.5-10.1); CARBON DIOXIDE 25 MMOL/L (21-32); CHLORIDE 104 MMOL/L (98-107); GFR ESTIMATED > 60; GLUCOSE 122 MG/DL (70-105); MAGNESIUM 2.3 MG/DL (1.8-2.4); PHOSPHORUS 2.1 MG/DL (2.3-4.7); POTASSIUM 3.4 MMOL/L (3.6-5.0); SODIUM 139 MMOL/L (135-145)
[2017-06-28] MEDS: POTASSIUM CL 10MEQ/50ML IVPB 50 ML IV SCH ×3 (05:00→05:48)
[2017-06-28] MEDS: MAGNESIUM 1 GM/100 ML IVPB 100 ML IV SCH (05:01)
[2017-06-28] MEDS: KCL 20 MEQ TAB (K-DUR) PO SCH (05:01)
[2017-06-28] MEDS: inSUlin ASPART (NovoLOG) 1 UNIT/0.01 ML (CHARGE PER UNIT) SC SCH ×4 (05:01→20:20)
[2017-06-28] MEDS: NS IV 1000 ML 1,000 ML IV SCH (06:35)
--- NOTE | 2017-06-28 06:38 | Pulmonary Progress Note ---
Subjective Time Seen by Provider: 06:57 Subjective/Events-last exam Pt self extubated yesterday. Exam Exam Vital Signs Date Time Temp Pulse Resp B/P (MAP) Pulse Ox O2 Delivery O2 Flow Rate FiO2 06/28/17 06:08 100 Vapotherm 10.00 40 06/28/17 03:55 100 Vapotherm 10.00 40 06/28/17 03:14 96.9 06/28/17 01:56 100 Vapotherm 10.00 40 06/28/17 01:00 87 06/28/17 00:25 99.2 06/28/17 00:11 100 Vapotherm 10.00 40 06/28/17 00:00 85 15 163/83 (109) 100 Vapotherm 40.00 10.00 06/28/17 00:00 Vapotherm 10.00 40 06/27/17 23:00 89 36 171/85 (113) 100 Vapotherm 40.00 10.00 06/27/17 22:03 100 Vapotherm 10.00 40 06/27/17 22:00 83 28 159/83 (108) 100 Vapotherm 40.00 10.00 06/27/17 21:00 84 29 165/83 (110) 100 Vapotherm 40.00 10.00 06/27/17 20:30 Vapotherm 40.00 10.00 06/27/17 20:30 Vapotherm 10.00 40 06/27/17 20:03 100 Nasal Cannula 2.00 06/27/17 20:00 98.9 06/27/17 20:00 90 33 170/84 (112) 100 Nasal Cannula 2.00 06/27/17 20:00 Nasal Cannula 2.00 06/27/17 19:15 Nasal Cannula 2.00 06/27/17 19:07 100 Nasal Cannula 4.00 06/27/17 19:00 93 06/27/17 19:00 93 37 178/98 (124) 100 OxyMask 5.00 06/27/17 18:58 100 OxyMask 5.00 06/27/17 18:50 100 OxyMask 7.00 06/27/17 18:39 140/76 06/27/17 18:19 143/78 06/27/17 18:18 94 22 100 24 06/27/17 18:00 77 23 122/72 (89) 100 Mechanical Ventilator 24.00 3 17:00 81 24 105/64 (78) 100 Mechanical Ventilator 24.00 06/27/17 17:00 100 Mechanical Ventilator 24 06/27/17 16:59 97.2 81 24 105/63 (77) 100 Mechanical Ventilator 24.00 06/27/17 16:00 85 24 116/68 (84) 100 Mechanical Ventilator 24.00 06/27/17 15:36 80 06/27/17 15:28 82 24 100 24 06/27/17 15:00 85 23 114/69 (84) 100 Mechanical Ventilator 24.00 06/27/17 14:01 86 24 100 24 06/27/17 14:00 87 27 123/70 (87) 100 Mechanical Ventilator 24.00 06/27/17 13:00 78 06/27/17 13:00 78 23 132/73 (92) 100 Mechanical Ventilator 24.00 06/27/17 12:31 80 133/77 06/27/17 12:00 85 24 133/71 (91) 100 Mechanical Ventilator 24.00 06/27/17 12:00 86 24 100 24 06/27/17 12:00 06/27/17 11:45 100 Mechanical Ventilator 24 06/27/17 11:42 99.0 87 24 148/76 (100) 100 Mechanical Ventilator 24.00 06/27/17 11:00 87 24 124/69 (87) 100 Mechanical Ventilator 24.00 06/27/17 10:52 100 24 100 24 06/27/17 10:00 87 24 147/80 (102) 100 Mechanical Ventilator 24.00 06/27/17 09:52 138/75 06/27/17 09:20 98 145/71 06/27/17 09:00 95 23 144/71 (95) 100 Mechanical Ventilator 24.00 06/27/17 08:41 100 24 100 24 06/27/17 08:41 Mechanical Ventilator 24.00 06/27/17 08:00 100 Mechanical Ventilator 30 06/27/17 08:00 77 24 161/90 (113) 100 Mechanical Ventilator 30.00 06/27/17 07:40 74 146/80 (102) 06/27/17 07:37 97.5 75 24 148/81 (103) 100 Mechanical Ventilator 30.00 06/27/17 07:00 78 23 139/79 (99) 100 Mechanical Ventilator 45.00 06/27/17 07:00 78 06/27/17 06:56 99.5 93 24 105/57 100 Mechanical Ventilator 45.00 06/27/17 06:52 100 24 100 30 I & O 06/28/17 07:00 Intake Total 2705 ml Output Total 2350 ml Balance 355 ml General Appearance: Anxious, Mild Distress HEENT: PERRL/EOMI, Pharynx Normal Neck: Full Range of Motion, Normal Inspection, Non Tender, Supple, Carotid Bruit Respiratory: Rhonci, Wheezing Cardiovascular: Regular Rate, Rhythm, No Murmur Capillary Refill: Less Than 3 Seconds Gastrointestinal: normal bowel sounds, soft, no organomegaly, no pulsatile mass Extremity: Normal Capillary Refill, No Pedal Edema Neurologic/Psychiatric: Alert, Oriented x3 Skin: Normal Color, Warm/Dry, Tattoos/Piercings Lymphatic: No Adenopathy Results Lab Laboratory Tests 06/27/17 03:00 06/27/17 05:30 06/28/17 03:00 Assessment/Plan Assessment/Plan Acute Respiratory failure with mucous plugging -Continue SVNs, Mucomyst Bilateral pneumonia with ARDS s/p Bronch - no signs of hemorrhage -Pt self extubated last night. He appears to be doing ok on Vapotherm -Titrate Fi02 as tolerated -Oxygen Strep pneumonia - BAL from bronch is growing Candidiasis -Continue Rocephin add diflucan -D/C Vancomycin -repeat [place] cultures Anemia -monitor Atelectasis - increase activity. PT/OT IS 233 Critical Care: Critically Ill Patient ERIC SEALS DO Jun 28, 2017 06:37
[2017-06-28] MEDS: LACTOBACILLUS Acidoph/Bulgar (LACTINEX/FLORANEX) TAB PO SCH ×3 (06:40→15:15)
[2017-06-28] MEDS ORDERED: SODIUM PHOSPHATE INJ 30 MM in NS (IVPB) 250 ML IV ONE (06:45)
[2017-06-28] MEDS ORDERED: FLUCONAZOLE 200 MG/100 ML 100 ML IV ONE (06:45)
--- NOTE | 2017-06-28 07:52 | Diagnostic Imaging Report ---
INDICATION: Status post extubation. Pneumonia. COMPARISON: 06/27/2017. FINDINGS: Single frontal radiographic view of the chest was obtained and demonstrates interval extubation and removal of enteric tube. Left internal jugular central venous catheter remains in stable position. Lungs show significant interval improved aeration. No large effusion or pneumothorax is seen on today's exam. Cardiac silhouette and pulmonary vasculature are within normal limits given portable technique. Bony structures show no new acute abnormalities. IMPRESSION: 1. Interval extubation and removal of gastric tube. 2. Significant interval improved aeration. Dictated by: Dictated on workstation # [id number]
[2017-06-28] MEDS: amLODIPine 5 MG (NORVASC) TAB PO SCH (07:56)
[2017-06-28] MEDS: guaiFENesin (MUCINEX) 600 MG TAB PO SCH ×2 (07:57→20:20)
--- NOTE | 2017-06-28 08:21 | Progress Note-Hospitalist ---
Subjective HPI/CC On Admission Date Seen by Provider: Jun 28, 2017 Time Seen by Provider: 07:30 CC: Pneumonia following influenza Subjective/Events-last exam Pt reports feeling better. Still having cough. Using IS. No abd pain or chest pain. Objective Exam Vital Signs Vital Signs Date Time Temp Pulse Resp B/P (MAP) Pulse Ox O2 Delivery O2 Flow Rate FiO2 06/23/17 05:59 98.1 110 24 146/79 (101) 96 06/23/17 05:59 Room Air 06/23/17 07:36 0.50 06/24/17 15:14 32 Capillary Refill : Less Than 3 Seconds General Appearance: No Apparent Distress, WD/WN Respiratory: No Respiratory Distress, Decreased Breath Sounds, Wheezing, Other (on vapotherm) Cardiovascular: Regular Rate, Rhythm, No Murmur Gastrointestinal: Normal Bowel Sounds, Non Tender, Soft Extremity: Non Tender, No Calf Tenderness, No Pedal Edema Neurologic/Psychiatric: Alert, Oriented x3, Normal Mood/Affect Results/Procedures Lab Laboratory Tests 06/28/17 03:00 Assessment/Plan Assessment and Plan Assess & Plan/Chief Complaint Acute Respiratory Failure Critical Care: Critically Ill Patient Diagnosis/Problems Diagnosis/Problems (1) Acute respiratory failure Status: Acute Assessment & Plan: secondary to ARDS from strep pneumonia post influenza pneumonia Continue on Rocephin and Vanc Pulm consulted, appreciate recs Self extubated 3/7 PM CXR shows extensive airspace disease consistent with ARDS Qualifiers: Qualified Codes: J96.01 - Acute respiratory failure with hypoxia (2) ARDS (adult respiratory distress syndrome) Status: Acute Assessment & Plan: As above Monitor I/Os-has been net negative last 3 days Pulm consulted, appreciate recs Extubated currently (3) Streptococcal pneumonia Status: Acute Assessment & Plan: Strep grew in all blood cultures on presentation Repeat cultures now negative Continue abx as above Echo ordered- report still pending from 06/23 HIV negative Cont probiotic (4) Asthma Status: Chronic Assessment & Plan: Unsure of baseline Continue Steroids and MAT protocol Qualifiers: Qualified Codes: J45.909 - Unspecified asthma, uncomplicated (5) Bacteremia Status: Resolved Assessment & Plan: Abx as above (6) Essential (primary) hypertension Status: Chronic Assessment & Plan: Amlodipine Hydralzine prn BP improved now that he is extubated (7) Prophylactic measure Assessment & Plan: Lovenox Protonix Saline lock NPO until speech CAIN Kurtz MD Jun 28, 2017 8:21 am
[2017-06-28] MEDS: AZITHROMYCIN 500 MG/NS 250 ML IVPB IV SCH ×2 (08:28)
[2017-06-28] MEDS: PANTOPRAZOLE 40 MG/10 ML (PROTONIX) VIAL IV SCH (08:37)
[2017-06-28] MEDS: cefTRIAXone 1 GM/NS 100 ML IVPB IV SCH ×2 (09:01)
[2017-06-28] MEDS: HYDROCODONE/CHLOR 10MG/5 ML (TUSSIONEX SUSP) 5ML UDC PO SCH ×2 (09:01→20:20)
--- NOTE | 2017-06-28 10:32 | ST Dysphagia Evaluation ---
Speech Evaluation-General Medical Diagnosis Pneumonia Onset Date: Jun 23, 2017 Therapy Diagnosis Therapy Diagnosis: Oropharyngeal Swallow Grossly WNL Precautions Precautions/Isolations: Fall Prevention, Standard Precautions Referral Referring Physician: Dr. Brigitte Braden Reason for Referral: Evaluation/Treatment Clinical Bedside Swallowing Evaluation Medical History Current History The patient was recently admitted to [facility] following a diagnosis of flu and strep related pneumonia. The patient self-extubated on 06/27/2017. Reviewed History: Yes Speech PLF/Current-Dysphagia Prior Level of Function The patient denied prior challenges with eating or drinking, including no signs/ symptoms of aspiration in the past. Subjective The patient was sitting upright in bed upon entrance. Per patient, he consumed toast, orange juice, and water for breakfast. The patient denied any challenges with the consistencies he has consumed since the initiation of his diet. Cognitive Status Patient Orientation: Person, Place, Time, Situation, Normal For Age Oral Motor Skills Dentition: Natural Current Food Consistancy: Regular, Thin Liquids Ability to Follow Directions: Excellent Oral Expression Ability: No Impairment Voice Voice Phonatory-Based Quality: Weak Voice Pitch: Normal Voice Loudness: Moderately Soft/Quiet Face Facial Symmetry: Symmetrical Oral-Facial Assessment Oral-Facial Dentition: Normal Labial Seal Description: Normal Smile: Normal Puff Cheeks: Normal Lingual Protrusion: Normal Lingual ROM: Normal Lingual Strength: Normal Pharynx Velopharyngeal Move.: Normal Volitional Dry Swallow: Yes (The patient denied odynophagia upon a dry swallow. ) Voluntary Cough: Yes Can Clear Throat Volitionally: Yes Productive Cough: Yes Productive Throat Clear: Yes (To note, the patient demonstrated a productive throat clear at baseline, prior to the initiation of bolus trials.) Dysphagia Evaluation Consistencies Presented: Regular, Thin Liquid, Pureed - No oral impairments were noted throughout the evaluation. - No pharyngeal impairments were noted throughout the evaluation. - No signs/symptoms of aspiration were demonstrated with small, single straw drinks (or cup sips), puree, or solid consistencies. The patient grimaced upon swallowing each consistency, however, continued to deny the presence of odynophagia. - The patient demonstrated a delayed throat clear following large, consecutive straw drinks of thin liquid. As the patient demonstrated a throat clear at baseline, it is difficult to assess whether the throat clear was secondary to the swallow or was a baseline function. Due to this, the patient was educated on the importance of taking single, small straw drinks which did not demonstrate any signs/symptoms of aspiration throughout the evaluation. Dietary Recommendations: Regular Liquid Recommendations: Thin Swallowing Precautions: Alternate Liquids/Solids, Small Bites and Sips, Sitting 90 Degrees 30 Post Intake Dysphagia Evaluation Summary The patient demonstrated an oropharyngeal swallow function grossly within normal limits. Speech-Plan Treatment Plan Speech Therapy Treatment Plan: Discontinue ST Evaluation, only. Frequency: 1 time per week Estimated Hrs Per Day: Other Rehab Potential: Good Safety Risks/Education Teaching Recipient: Patient Teaching Methods: Discussion Response to Teaching: Verbalize Understanding Education Topics Provided: Results, Recommendations, Plan of Care, Swallowing Strategies (including the importance of small, single sips via straw), Signs/Symptoms of Aspiration Time Speech Therapy Time In: 09:45 Speech Therapy Time Out: 10:05 Total Billed Time: 20 Billed Treatment Time 1SEAN [facility]IZ[facility] ST Jun 28, 2017 10:31
[2017-06-28] MEDS: ENOXAPARIN 40 MG/0.4 ML (LOVENOX) SYR SC SCH (15:15)
--- NOTE | 2017-06-28 15:30 | Physical Therapy Progress Note ---
Therapy Progress Note Patient had just returned to bed via nursing. PT to assess in NANCY Moreau PT Jun 28, 2017 15:30
[2017-06-28] MEDS ORDERED: TROUGH ORDER-PHARMACY XX NR (18:00)
[2017-06-29] VITALS (12 sets, daily range): BP systolic 129–152; BP diastolic 75–104
[2017-06-29] MEDS: methylPREDNISolone 40 MG/ML (Solu-MEDROL) VIAL IV SCH ×4 (00:28→18:21)
[2017-06-29 03:29] LABS: BASOPHILS % (AUTO) 0 % (0-10); EOSINOPHILS % (AUTO) 0 % (0-10); HEMATOCRIT 34 % (40-54); HEMOGLOBIN 11.7 G/DL (13.3-17.7); LYMPHOCYTES # (AUTO) 2.1 X 10^3 (1.0-4.0); LYMPHOCYTES % (AUTO) 15 % (12-44); MEAN CORPUSCULAR HEMOGLOBIN 33 PG (25-34); MEAN CORPUSCULAR HGB CONC 35 G/DL (32-36); MEAN CORPUSCULAR VOLUME 94 FL (80-99); MEAN PLATELET VOLUME 9.5 FL (7.4-10.4); MONOCYTES # (AUTO) 0.9 X 10^3 (0.0-1.0); MONOCYTES % (AUTO) 7 % (0-12); NEUTROPHILS # (AUTO) 10.7 X 10^3 (1.8-7.8); NEUTROPHILS % (AUTO) 78 % (42-75); PLATELET COUNT 465 10^3/uL (130-400); RED BLOOD COUNT 3.59 10^6/uL (4.35-5.85); RED CELL DISTRIBUTION WIDTH 13.2 % (10.0-14.5); WHITE BLOOD COUNT 13.7 10^3/uL (4.3-11.0)
[2017-06-29] MEDS: RT-ALBUTEROL/IPRATROPIUM 3 ML (DUONEB) VIAL INH SCH ×8 (03:38→21:11)
[2017-06-29] MEDS: aCETylcysteine 20% (MUCOMYST) 30ML SOLN VIAL INH SCH ×6 (03:39→21:59)
[2017-06-29 03:48] LABS: BUN/CREATININE RATIO 32; CALCIUM 8.5 MG/DL (8.5-10.1); CARBON DIOXIDE 24 MMOL/L (21-32); CHLORIDE 105 MMOL/L (98-107); CREATININE SERUM 0.62 MG/DL (0.60-1.30); GFR ESTIMATED > 60; GLUCOSE 149 MG/DL (70-105); MAGNESIUM 2.2 MG/DL (1.8-2.4); PHOSPHORUS 3.3 MG/DL (2.3-4.7); POTASSIUM 4.3 MMOL/L (3.6-5.0); SODIUM 137 MMOL/L (135-145)
[2017-06-29] MEDS: MAGNESIUM 1 GM/100 ML IVPB 100 ML IV SCH (04:25)
[2017-06-29] MEDS: KCL 20 MEQ TAB (K-DUR) PO SCH (04:25)
[2017-06-29] MEDS: POTASSIUM CL 10MEQ/50ML IVPB 50 ML IV SCH (04:25)
--- NOTE | 2017-06-29 05:13 | Pulmonary Progress Note ---
Subjective Time Seen by Provider: 05:12 Subjective/Events-last exam Pt is doing better. Will transfer to 4th floor. Exam Exam Vital Signs Date Time Temp Pulse Resp B/P (MAP) Pulse Ox O2 Delivery O2 Flow Rate FiO2 06/29/17 04:00 Vapotherm 6.00 21 06/29/17 04:00 79 31 143/97 (112) 98 Vapotherm 21.00 6.00 06/29/17 03:39 99 Vapotherm 6.00 21 06/29/17 03:00 69 27 147/94 (111) 96 Vapotherm 21.00 6.00 06/29/17 02:00 75 29 142/100 (114) 95 Vapotherm 21.00 6.00 06/29/17 01:00 82 06/29/17 01:00 79 28 143/99 (114) 95 Vapotherm 21.00 6.00 06/29/17 00:00 Vapotherm 6.00 21 06/29/17 00:00 80 24 139/92 (108) 100 Vapotherm 21.00 6.00 06/28/17 23:29 100 Vapotherm 6.00 21 06/28/17 23:00 79 26 138/89 (105) 100 Vapotherm 21.00 6.00 06/28/17 22:00 90 38 142/87 (105) 95 Vapotherm 21.00 6.00 06/28/17 21:00 86 35 147/98 (114) 100 Vapotherm 21.00 6.00 06/28/17 20:50 92 Vapotherm 6.00 21 06/28/17 20:00 Vapotherm 6.00 21 06/28/17 20:00 86 30 145/96 (112) 95 Vapotherm 21.00 6.00 06/28/17 19:09 100 Vapotherm 6.00 21 06/28/17 19:00 77 06/28/17 19:00 77 27 147/100 (116) 99 Vapotherm 21.00 6.00 06/28/17 18:00 75 31 146/96 (113) 98 Vapotherm 21.00 8.00 06/28/17 17:00 93 30 147/98 (114) 94 Vapotherm 21.00 8.00 06/28/17 16:31 95 Vapotherm 6.00 21 06/28/17 16:00 98.9 80 26 156/86 (109) 94 Vapotherm 21.00 10.00 06/28/17 16:00 Vapotherm 8.00 21 06/28/17 14:36 100 Vapotherm 8.00 21 06/28/17 14:00 88 0 141/98 (112) 100 Vapotherm 21.00 8.00 06/28/17 13:40 100 Vapotherm 8.00 06/28/17 13:00 89 37 142/87 (105) 100 Vapotherm 21.00 8.00 06/28/17 13:00 81 06/28/17 12:00 Vapotherm 8.00 21 06/28/17 12:00 88 43 144/92 (109) 100 Vapotherm 21.00 8.00 06/28/17 11:02 99.6 90 24 162/74 (103) 100 Vapotherm 21.00 8.00 06/28/17 10:24 100 Vapotherm 10.00 21 06/28/17 10:24 Vapotherm 21.00 8.00 06/28/17 10:00 89 19 156/79 (104) 100 Vapotherm 21.00 10.00 06/28/17 09:00 84 28 146/71 (96) 100 Vapotherm 21.00 10.00 06/28/17 08:49 100 Vapotherm 10.00 21 06/28/17 08:00 Vapotherm 10.00 21 06/28/17 08:00 83 34 139/69 (92) 100 Vapotherm 21.00 10.00 06/28/17 08:00 98.8 89 20 100 Vapotherm 21.00 10.00 06/28/17 07:00 79 06/28/17 07:00 80 40 151/79 (103) 100 Vapotherm 40.00 10.00 06/28/17 06:08 100 Vapotherm 10.00 40 06/28/17 06:00 79 15 133/69 (90) 100 Vapotherm 40.00 10.00 I & O 06/29/17 07:00 Intake Total 2866 ml Output Total 3300 ml Balance -434 ml General Appearance: No Apparent Distress, WD/WN HEENT: PERRL/EOMI, Pharynx Normal Neck: Full Range of Motion, Normal Inspection, Non Tender, Supple, Carotid Bruit Respiratory: No Respiratory Distress, Decreased Breath Sounds, Wheezing, Other (on vapotherm) Cardiovascular: Regular Rate, Rhythm, No Murmur Capillary Refill: Less Than 3 Seconds Gastrointestinal: normal bowel sounds, soft, no organomegaly, no pulsatile mass Extremity: Non Tender, No Calf Tenderness, No Pedal Edema Neurologic/Psychiatric: Alert, Oriented x3, Normal Mood/Affect Skin: Normal Color, Warm/Dry, Tattoos/Piercings Lymphatic: No Adenopathy Results Lab Laboratory Tests 06/27/17 05:30 06/28/17 03:00 06/29/17 03:10 Assessment/Plan Assessment/Plan Acute Respiratory failure Bilateral pneumonia with probable ARDS -CT scan reviewed and shows extensive bilateral infiltrates. Radiology is questioning pulmonary hemorrhage. -Oxygen -echocardiogram pending -Increase activity Strep pneumonia , candidiasis - Rocephin, Diflucan -Repeat zimmerman cultures Anemia -Check peripheral spear -monitor Transfer to 4th floor and continue monitoring 233 Critical Care: Critically Ill Patient ERIC SEALS DO Jun 29, 2017 05:13
[2017-06-29] MEDS: LACTOBACILLUS Acidoph/Bulgar (LACTINEX/FLORANEX) TAB PO SCH ×3 (05:28→17:41)
[2017-06-29] MEDS: inSUlin ASPART (NovoLOG) 1 UNIT/0.01 ML (CHARGE PER UNIT) SC SCH ×3 (06:47→17:27)
--- NOTE | 2017-06-29 07:35 | Progress Note-Hospitalist ---
Subjective HPI/CC On Admission Date Seen by Provider: Jun 29, 2017 Time Seen by Provider: 07:45 CC: Pneumonia following influenza Subjective/Events-last exam Pt reports feeling well. Eating well but mouth is dry. No other complaints. Ready to get out of bed. Objective Exam Vital Signs Vital Signs Date Time Temp Pulse Resp B/P (MAP) Pulse Ox O2 Delivery O2 Flow Rate FiO2 06/23/17 05:59 98.1 110 24 146/79 (101) 96 06/23/17 05:59 Room Air 06/23/17 07:36 0.50 06/24/17 15:14 32 Capillary Refill : Less Than 3 Seconds General Appearance: No Apparent Distress, WD/WN Respiratory: Normal Breath Sounds, No Respiratory Distress Cardiovascular: Regular Rate, Rhythm, No Murmur Gastrointestinal: Normal Bowel Sounds, Soft Extremity: No Calf Tenderness, No Pedal Edema Neurologic/Psychiatric: Alert, Oriented x3, Normal Mood/Affect Results/Procedures Lab Laboratory Tests 06/29/17 03:10 Assessment/Plan Assessment and Plan Assess & Plan/Chief Complaint Acute Respiratory Failure Diagnosis/Problems Diagnosis/Problems (1) Acute respiratory failure Status: Acute Assessment & Plan: secondary to ARDS from strep pneumonia post influenza pneumonia Continue on Rocephin and Vanc Pulm consulted, appreciate recs Self extubated 3/7 PM CXR shows extensive airspace disease consistent with ARDS Lynne grew in bronch culture- Diflucan added Will transfer to floor Qualifiers: Qualified Codes: J96.01 - Acute respiratory failure with hypoxia (2) ARDS (adult respiratory distress syndrome) Status: Acute Assessment & Plan: As above Monitor I/Os-has been net negative last 4 days But less so yesterday Pulm consulted, appreciate recs (3) Streptococcal pneumonia Status: Acute Assessment & Plan: Strep grew in all blood cultures on presentation Repeat cultures now negative Continue abx as above Echo ordered- report still pending from 06/23 HIV negative Cont probiotic (4) Asthma Status: Chronic Assessment & Plan: Unsure of baseline Continue Steroids and MAT protocol Qualifiers: Qualified Codes: J45.909 - Unspecified asthma, uncomplicated (5) Bacteremia Status: Resolved Assessment & Plan: Abx as above (6) Essential (primary) hypertension Status: Chronic Assessment & Plan: Amlodipine Hydralzine prn BP improved now that he is extubated (7) Prophylactic measure Assessment & Plan: Lovenox Protonix Saline lock Regular diet CAIN BURRELL MD Jun 29, 2017 7:35 am
--- NOTE | 2017-06-29 08:15 | Diagnostic Imaging Report ---
EXAMINATION: Chest radiograph, portable AP view. DATE: June 29, 2017 at 0225 hours. INDICATION: 31-year-old male, dyspnea. COMPARISON: June 28, 2017. FINDINGS: The left internal jugular central venous line overlies the expected position of the cavoatrial junction. Stable overall appearance of the cardiomediastinal silhouette. There is no identified pneumothorax. There is no large pleural effusion. There is a nodular opacity projecting over the left upper lobe measuring 1.8 cm in size. There is nonspecific airspace consolidation in the right lower lung zone as well as subtle interstitial and alveolar opacities in the left lung. Overall aeration of the lungs is essentially unchanged since comparison exam. IMPRESSION: Grossly unchanged 1.8 cm nodular opacity overlying the left upper lobe with subtle interstitial and airspace consolidation in the left lung and airspace consolidation in the right lower lung zone. Dictated by: Dictated on workstation # [id number]
[2017-06-29] MEDS ORDERED: FLUCONAZOLE 100 MG/50 ML IV SCH ×2 (09:00)
[2017-06-29] MEDS: amLODIPine 5 MG (NORVASC) TAB PO SCH (09:54)
[2017-06-29] MEDS: HYDROCODONE/CHLOR 10MG/5 ML (TUSSIONEX SUSP) 5ML UDC PO SCH ×2 (09:54→21:32)
[2017-06-29] MEDS: guaiFENesin (MUCINEX) 600 MG TAB PO SCH ×2 (09:54→21:32)
[2017-06-29] MEDS: AZITHROMYCIN 500 MG/NS 250 ML IVPB IV SCH ×2 (09:57)
[2017-06-29] MEDS: PANTOPRAZOLE 40 MG/10 ML (PROTONIX) VIAL IV SCH (10:12)
[2017-06-29] MEDS: cefTRIAXone 1 GM/NS 100 ML IVPB IV SCH ×2 (10:17)
--- NOTE | 2017-06-29 11:40 | Physical Therapy Evaluation ---
PT Evaluation-General Medical Diagnosis Admission Date Jun 23, 2017 at 08:00 Medical Diagnosis: Pneumonia Onset Date: Jun 23, 2017 Therapy Diagnosis Therapy Diagnosis: debility Height/Weight Height (Feet): 6 Height (Inches): 2.00 Weight (Pounds): 214 Weight (Ounces): 2.0 Precautions Precautions/Isolations: Fall Prevention, Standard Precautions Weight Bear Status Right Lower Extremity: Right Full Weight Bearing Left Lower Extremity: Left Full Weight Bearing Referral Physician: Mary Reason for Referral: Evaluation/Treatment Medical History Pertinent Medical History: Smoking Current History ED with SOB, CP, flu Reviewed History: Yes Social History Home: Single Level Current Living Status: Spouse Prior/Core FIM Prior Level of Function Functional Norris Measure 0=Not Assessed/NA 4=Minimal Assistance 1=Total Assistance 5=Supervision or Setup 2=Maximal Assistance 6=Modified Norris 3=Moderate Assistance 7=Complete Norris Bed Mobility: 7 Transfers (B,C,W/C) (FIM): 7 Gait: 7 Locomotion: 7 PT Evaluation-Current Subjective Patient agrees to PT. No c/o Pain Numeric Pain Scale: 0-No Pain Location: No Pain Reported Objective Patient Orientation: Normal For Age Problem Solving: Good Attachments: Oxygen (2L) ROM/Strength ROM Lower Extremities bilateral LE WNL Strength Lower Extremities right knee flexion/extension 5/5; hip flexion 5/5; DF/PF 5/5 left knee flexion/extension 5/5; hip flexion 5/5; DF/PF 5/5 Integumentary/Posture Integumentary refer to nursing notes Bowel Incontinence: No Bladder Incontinence: No Posture WNL Neuromuscular (Tone, Coordination, Reflexes) grossly intact Sensory Vision: Functional Hearing: Functional Sensation Right Lower Extremit: Intact Sensation Left Lower Extremity: Intact Transfers Functional Norris Measure 0=Not Assessed/NA 4=Minimal Assistance 1=Total Assistance 5=Supervision or Setup 2=Maximal Assistance 6=Modified Norris 3=Moderate Assistance 7=Complete Norris Transfers (B, C, W/C) (FIM): 6 Scootin Sit to/from Stand: 6 Gait Mode of Locomotion: Walk Anticipated Mode of Locomotion: Walk Gait (FIM): 6 Distance (FIM): 3=150 ft Distance: 375' Gait Level of Assist: 6 Gait Assistive Device: FWW Comments/Gait Description FWW for pulmonary function Balance Sitting Static: Normal Sitting Dynamic: Normal Standing Static: Normal Standing Dynamic: Normal Assessment/Needs 31 y.o. male, will be seen short term to address pulmonary function with functional mobility to ensure safe return to home. Rehab Potential: Good PT Short Term Goals Short Term Goals Time Frame: Jul 04, 2017 Transfers (B,C,W/C) (FIM): 7 Gait (FIM): 7 Distance (FIM): 3=150 ft Gait Level of Assist: 7 Gait Assistive Device: None PT Plan Treatment/Plan Treatment Plan: Continue Plan of Care Treatment Plan: Education, Functional Activity Ezequiel, Functional Strength, Gait Treatment Duration: Jul 04, 2017 Frequency: 5 times per week Estimated Hrs Per Day: .25 hour per day Patient and/or Family Agrees t: Yes Time/GCodes Time In: 750 Time Out: 810 Total Billed Treatment Time: 20 Total Billed Treatment 1 visit EVModC 20 min NANCY ODELL PT Jun 29, 2017 11:40
[2017-06-29] MEDS: ENOXAPARIN 40 MG/0.4 ML (LOVENOX) SYR SC SCH (15:13)
[2017-06-30] VITALS: BP 137/87
[2017-06-30] MEDS: methylPREDNISolone 40 MG/ML (Solu-MEDROL) VIAL IV SCH ×2 (00:28→06:24)
[2017-06-30] MEDS: RT-ALBUTEROL/IPRATROPIUM 3 ML (DUONEB) VIAL INH SCH ×6 (03:31→22:26)
[2017-06-30 03:47] VITALS: BP 132/82
[2017-06-30 04:26] LABS: BASOPHILS % (AUTO) 0 % (0-10); EOSINOPHILS % (AUTO) 0 % (0-10); HEMATOCRIT 37 % (40-54); LYMPHOCYTES # (AUTO) 2.4 X 10^3 (1.0-4.0); LYMPHOCYTES % (AUTO) 14 % (12-44); MEAN CORPUSCULAR HEMOGLOBIN 33 PG (25-34); MEAN CORPUSCULAR HGB CONC 35 G/DL (32-36); MEAN CORPUSCULAR VOLUME 94 FL (80-99); MEAN PLATELET VOLUME 9.3 FL (7.4-10.4); MONOCYTES # (AUTO) 0.9 X 10^3 (0.0-1.0); MONOCYTES % (AUTO) 5 % (0-12); NEUTROPHILS % (AUTO) 81 % (42-75); PLATELET COUNT 550 10^3/uL (130-400); RED BLOOD COUNT 3.99 10^6/uL (4.35-5.85); WHITE BLOOD COUNT 17.3 10^3/uL (4.3-11.0)
[2017-06-30 04:42] LABS: BUN/CREATININE RATIO 27; CARBON DIOXIDE 21 MMOL/L (21-32); CHLORIDE 102 MMOL/L (98-107); CREATININE SERUM 0.62 MG/DL (0.60-1.30); GFR ESTIMATED > 60; GLUCOSE 148 MG/DL (70-105); MAGNESIUM 2.2 MG/DL (1.8-2.4); PHOSPHORUS 3.3 MG/DL (2.3-4.7); POTASSIUM 4.5 MMOL/L (3.6-5.0); SODIUM 133 MMOL/L (135-145)
[2017-06-30] MEDS: LACTOBACILLUS Acidoph/Bulgar (LACTINEX/FLORANEX) TAB PO SCH ×3 (06:24→16:47)
[2017-06-30] MEDS: PANTOPRAZOLE 40 MG (PROTONIX) TAB PO SCH (06:24)
--- NOTE | 2017-06-30 07:31 | Progress Note-Hospitalist ---
Subjective HPI/CC On Admission Date Seen by Provider: Jun 30, 2017 Time Seen by Provider: 07:26 CC: Pneumonia following influenza Subjective/Events-last exam Pt reports doing well. Off oxygen. No SOB. Using IS frequently. No problems eating or drinking. Urinating without difficulty. Denies constipation or diarrhea. Objective Exam Vital Signs Vital Signs Date Time Temp Pulse Resp B/P (MAP) Pulse Ox O2 Delivery O2 Flow Rate FiO2 06/24/17 04:00 97.7 86 22 145/95 (112) 97 Nasal Cannula 1.50 06/24/17 15:14 32 Capillary Refill : Less Than 3 SecondsNONE General Appearance: No Apparent Distress, WD/WN Respiratory: No Accessory Muscle Use, No Respiratory Distress, Wheezing (scant) Cardiovascular: Regular Rate, Rhythm, No Murmur Gastrointestinal: Normal Bowel Sounds, Non Tender, Soft Extremity: Non Tender, No Calf Tenderness, No Pedal Edema Neurologic/Psychiatric: Alert, Oriented x3 Results/Procedures Lab Laboratory Tests 06/30/17 03:39 Assessment/Plan Assessment and Plan Assess & Plan/Chief Complaint Acute Respiratory Failure Diagnosis/Problems Diagnosis/Problems (1) Streptococcal pneumonia Status: Acute Assessment & Plan: Strep grew in all blood cultures on presentation Repeat cultures now negative Continue abx as above Echo ordered- EF 65% with mod/severe tricupsid regurg and pulm HTN HIV negative Cont probiotic Mildly elevated leukocytosis today- will trend and watch fever curve (2) Acute respiratory failure Status: Resolved Assessment & Plan: secondary to ARDS from strep pneumonia post influenza pneumonia Pulm consulted, appreciate recs Self extubated 3/7 PM Lynne grew in bronch culture- Diflucan added Continue Diflucan and Keflex per cultures Now on room air Qualifiers: Qualified Codes: J96.01 - Acute respiratory failure with hypoxia (3) ARDS (adult respiratory distress syndrome) Status: Acute Assessment & Plan: As above Pulm consulted, appreciate recs Reviewed CXR image- grossly unchanged (4) Asthma Status: Chronic Assessment & Plan: Unsure of baseline Continue Steroids- switched to oral MAT protocol Qualifiers: Qualified Codes: J45.909 - Unspecified asthma, uncomplicated (5) Bacteremia Status: Resolved Assessment & Plan: Abx as above (6) Essential (primary) hypertension Status: Chronic Assessment & Plan: Well controlled with Amlodipine Hydralzine prn- none needed since 06/27 (7) Prophylactic measure Assessment & Plan: Lovenox Protonix Saline lock Regular diet CAIN BURRELL MD Jun 30, 2017 07:31
--- NOTE | 2017-06-30 07:51 | Diagnostic Imaging Report ---
Indication: Dyspnea Comparison: 06/29/2017 Findings: Single frontal view of the chest is obtained. Left IJ line has been removed. Heart size is stable. The pulmonary vasculature appear stable. There is no pneumothorax or pleural fluid. Ill-defined nodular density in the lateral left upper lobe is unchanged. Some minimal patchy airspace disease in the right lung base is also stable. Lungs otherwise clear. Impression: Interval removal of the left IJ line. Otherwise unchanged appearance. Patchy airspace disease in the lateral left upper lobe and right lower lobe appears similar to the recent prior study. No new abnormality is seen. Dictated by: Dictated on workstation # [id number]
[2017-06-30 08:00] VITALS: BP 137/81
[2017-06-30] MEDS: HYDROCODONE/CHLOR 10MG/5 ML (TUSSIONEX SUSP) 5ML UDC PO SCH ×2 (08:21→20:30)
[2017-06-30] MEDS: fluCOnazole (DIFLUCAN) 100 MG TAB PO SCH (08:22)
[2017-06-30] MEDS: guaiFENesin (MUCINEX) 600 MG TAB PO SCH ×2 (08:22→20:30)
[2017-06-30] MEDS: CEPHALEXIN 250 MG (KEFLEX) CAP PO SCH ×4 (08:22→20:30)
[2017-06-30] MEDS: amLODIPine 5 MG (NORVASC) TAB PO SCH (08:22)
[2017-06-30] MEDS: predniSONE 10 MG TAB PO SCH (08:22)
[2017-06-30 12:00] VITALS: BP 135/84
[2017-06-30] MEDS: ENOXAPARIN 40 MG/0.4 ML (LOVENOX) SYR SC SCH (14:12)
[2017-06-30 16:00] VITALS: BP 136/80
[2017-06-30 20:00] VITALS: BP 135/87
[2017-07-01] VITALS: BP 136/81
[2017-07-01] MEDS: RT-ALBUTEROL/IPRATROPIUM 3 ML (DUONEB) VIAL INH SCH ×2 (01:33→06:00)
[2017-07-01 04:00] VITALS: BP 126/85
[2017-07-01] MEDS: LACTOBACILLUS Acidoph/Bulgar (LACTINEX/FLORANEX) TAB PO SCH ×2 (05:56→13:25)
[2017-07-01] MEDS: PANTOPRAZOLE 40 MG (PROTONIX) TAB PO SCH (05:57)
[2017-07-01 06:03] LABS: BASOPHILS % (AUTO) 0 % (0-10); EOSINOPHILS % (AUTO) 0 % (0-10); HEMATOCRIT 38 % (40-54); LYMPHOCYTES # (AUTO) 5.2 X 10^3 (1.0-4.0); LYMPHOCYTES % (AUTO) 31 % (12-44); MEAN CORPUSCULAR HEMOGLOBIN 32 PG (25-34); MEAN CORPUSCULAR HGB CONC 34 G/DL (32-36); MEAN CORPUSCULAR VOLUME 95 FL (80-99); MEAN PLATELET VOLUME 9.3 FL (7.4-10.4); MONOCYTES # (AUTO) 1.1 X 10^3 (0.0-1.0); MONOCYTES % (AUTO) 7 % (0-12); NEUTROPHILS # (AUTO) 10.4 X 10^3 (1.8-7.8); NEUTROPHILS % (AUTO) 62 % (42-75); PLATELET COUNT 635 10^3/uL (130-400); RED BLOOD COUNT 4.02 10^6/uL (4.35-5.85); RED CELL DISTRIBUTION WIDTH 12.9 % (10.0-14.5); WHITE BLOOD COUNT 16.8 10^3/uL (4.3-11.0)
[2017-07-01 06:08] LABS: BUN/CREATININE RATIO 26; CARBON DIOXIDE 23 MMOL/L (21-32); CHLORIDE 102 MMOL/L (98-107); CREATININE SERUM 0.68 MG/DL (0.60-1.30); GFR ESTIMATED > 60; GLUCOSE 95 MG/DL (70-105); POTASSIUM 3.8 MMOL/L (3.6-5.0); SODIUM 135 MMOL/L (135-145)
[2017-07-01] MEDS ORDERED: RT-ALBUTEROL/IPRATROPIUM 3 ML (DUONEB) VIAL INH PRN (06:30)
[2017-07-01 06:39] LABS: BAND NEUTROPHILS 5 %; LYMPHOCYTES % (MANUAL) 34 %; METAMYELOCYTES % 4 %; MONOCYTES % (MANUAL) 6 %; NEUTROPHILS % (MANUAL) 51 %; RBC MORPH NORMAL
[2017-07-01] MEDS: guaiFENesin (MUCINEX) 600 MG TAB PO SCH (08:07)
[2017-07-01] MEDS: predniSONE 10 MG TAB PO SCH (08:07)
[2017-07-01] MEDS: fluCOnazole (DIFLUCAN) 100 MG TAB PO SCH (08:07)
[2017-07-01] MEDS: amLODIPine 5 MG (NORVASC) TAB PO SCH (08:07)
[2017-07-01] MEDS: HYDROCODONE/CHLOR 10MG/5 ML (TUSSIONEX SUSP) 5ML UDC PO SCH (08:08)
[2017-07-01] MEDS: CEPHALEXIN 250 MG (KEFLEX) CAP PO SCH ×2 (08:11→13:25)
[2017-07-01 08:30] VITALS: BP 123/71
[2017-07-01] MEDS ORDERED: RT-ALBUTEROL/IPRATROPIUM 3 ML (DUONEB) VIAL INH SCH (09:00)
--- NOTE | 2017-07-01 09:43 | Diagnostic Imaging Report ---
EXAM: CHEST 1 VIEW, AP/PA ONLY INDICATION: Dyspnea. COMPARISON: Chest radiograph 06/30/2017. FINDINGS: Normal heart size and pulmonary vascularity. Persistent patchy airspace opacity in the left upper lung. No pleural effusion or pneumothorax. No acute osseous findings. IMPRESSION: Persistent patchy airspace opacity in the upper left lung. Dictated by: Dictated on workstation # [id number]
[2017-07-01] MEDS ORDERED: AMLO5TAB2 PO (09:55)
[2017-07-01] MEDS ORDERED: PRED10TA22 PO (09:55)
[2017-07-01] MEDS ORDERED: CEPH250C PO (09:55)
[2017-07-01] MEDS ORDERED: FLUC100T6 PO (09:55)
[2017-07-01] MEDS ORDERED: RT-ALBUINH IH (10:01)
[2017-07-01] MEDS ORDERED: INFLUENZA TRIvalent 2017-2018 0.5 ML/45 MCG SYR IM ONE (13:31)
--- NOTE | 2017-07-01 13:33 | Discharge Instructions ---
Discharge Instructions Discharge Medications New, Converted or Re-Newed RX: Call to Patients Pharmacy Patient Instructions Patient Instructions Please take your medications as written. Goal/Follow Up Appt: With Dr Hernandez in 2 weeks. Please establish with a primary care provider to follow up this hospitalization. Return to The Hospital For: Should your symptoms return or worse or if you feel you are not getting better. Activity & Diet Discharge Diet: Cardiac Diet Activity as Tolerated: Yes Orders-Post D/C & Referrals Please follow up with your primary care physician as discussed. Return to the emergency department if condition worsens. CAIN BURRELL MD Jul 01, 2017 1:33 pm
--- NOTE | 2017-07-01 13:52 | Discharge Summary-Hospitalist ---
Diagnosis/Chief Complaint Date of Admission Jun 23, 2017 at 8:00 am Date of Discharge Discharge Date: Jul 01, 2017 Admission Diagnosis Assessment: Bilateral pneumonia with severe wheezing Recent influenza 2 days prior Acute exacerbation of COPD Current smoker Anxiety Pleuritic chest pain Discharge Diagnosis Acute Respiratory Failure (1) Streptococcal pneumonia Status: Acute Assessment & Plan: Strep grew in all blood cultures on presentation Repeat cultures now negative Will DC home with Keflex and Diflucan Echo ordered- EF 65% with mod/severe tricupsid regurg and pulm HTN Will need to follow up with Dr Hernandez HIV negative (2) Acute respiratory failure Status: Resolved Assessment & Plan: secondary to ARDS from strep pneumonia post influenza pneumonia Pulm consulted, appreciate recs Self extubated 06/27 PM Lynne grew in bronch culture- Diflucan added Continue Diflucan and Keflex per cultures at discharge Now on room air- did not need home oxygen on ambulatory testing (3) ARDS (adult respiratory distress syndrome) Status: Acute Assessment & Plan: As above Pulm consulted, appreciate recs (4) Asthma Status: Chronic Assessment & Plan: Unsure of baseline DC home with steroid taper MAT protocol (5) Bacteremia Status: Resolved Assessment & Plan: Abx as above (6) Essential (primary) hypertension Status: Chronic Assessment & Plan: Well controlled with Amlodipine Hydralzine prn- none needed since 06/27 (7) Prophylactic measure Assessment & Plan: Lovenox Protonix Saline lock Regular diet Discharge Summary Consultations Dr Hernandez- [place] Discharge Physical Examination Allergies: Coded Allergies: No Known Drug Allergies (Unverified , 06/20/17) Vitals & I&Os Vital Signs Date Time Temp Pulse Resp B/P (MAP) Pulse Ox O2 Delivery O2 Flow Rate FiO2 07/01/17 08:30 97.5 95 18 123/71 (88) 96 Room Air 07/01/17 06:23 21 06/29/17 14:00 6.00 Hospital Course Pt is a 31yoAAM who was admitted to the hospital for postinfluenza pneumonia. He was found to be septic with strep pneumonia bacteremia from his pneumonia. His respiratory status worsened as he developed ARDS and he necessitated intubation and paralyzation. He self extubated on the evening of 06/27 and did well. He was weaned off of oxygen and antibiotics were deescalated as well. He recovered she well and was requesting discharge on day of discharge. He passed him ambulatory oximetry and was off ozygen >24 prior to discharge. I called and discussed medications with pharmacy to ensure medications were affordable. 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 He was discharged home in stable condition. I also called and discussed with Dr. Hernandez who was in agreement with plan to discharge and will see him in 2 weeks. Labs (last 24 hrs) Laboratory Tests 07/01/17 04:40: White Blood Count 16.8H, Red Blood Count 4.02L, Hemoglobin 13.0L, Hematocrit 38L , Mean Corpuscular Volume 95, Mean Corpuscular Hemoglobin 32, Mean Corpuscular Hemoglobin Concent 34, Red Cell Distribution Width 12.9, Platelet Count 635H, Mean Platelet Volume 9.3, Neutrophils (%) (Auto) 62, Lymphocytes (%) (Auto) 31, Monocytes (%) (Auto) 7, Eosinophils (%) (Auto) 0, Basophils (%) (Auto) 0, Neutrophils # (Auto) 10.4H, Lymphocytes # (Auto) 5.2H, Monocytes # (Auto) 1.1H, Eosinophils # (Auto) 0.0, Basophils # (Auto) 0.0, Neutrophils % (Manual) 51, Lymphocytes % (Manual) 34, Monocytes % (Manual) 6, Metamyelocytes % 4, Band Neutrophils 5, Blood Morphology Comment NORMAL, Sodium Level 135, Potassium Level 3.8, Chloride Level 102, Carbon Dioxide Level 23, Anion Gap 10, Blood Urea Nitrogen 18, Creatinine 0.68, Estimat Glomerular Filtration Rate > 60, BUN/ Creatinine Ratio 26, Glucose Level 95, Calcium Level 9.0 Microbiology 06/27/17 Blood Culture - Preliminary, Resulted No growth 06/27/17 Influenza Types A,B Antigen (BRIANNA) - Final, Complete Discussion & Recommendations Discharge Planning: >30 minutes discharge planning Discharge Home Medications: Active Scripts Active Ventolin Hfa (Albuterol Sulfate) 1 Puff Puff 2 Puff IH Q4H 1 PUFF = 90 MCG Prednisone 10 Mg Tab.ds.pk 10 Mg PO DAILY Take 6 tabs(60mg)daily,decrease by 1 tab(10mg)every other day. Fluconazole 100 Mg Tablet 100 Mg PO DAILY Amlodipine Besylate 5 Mg Tablet 10 Mg PO DAILY Cephalexin 250 Mg Capsule 500 Mg PO QID Instructions to patient/family Please see electronic discharge instructions given to patient. Clinical Quality Measures AMI/AHF: ASA po Prior to arrival: No DVT/VTE Risk/Contraindication: Risk Factor Score Per Nursin RFS Level Per Nursing on Admit: 1=Low/No VTE PPX Copy Copies To 1: ERIC HERNANDEZ DO Problem Qualifiers (1) Acute respiratory failure: Respiratory failure complication: hypoxia Qualified Codes: J96.01 - Acute respiratory failure with hypoxia (2) Asthma: Asthma severity: unspecified severity Asthma persistence: unspecified Asthma complication type: unspecified Qualified Codes: J45.909 - Unspecified asthma, uncomplicated CAIN BURRELL MD Jul 01, 2017 1:52 pm
--- NOTE | 2017-07-02 17:17 | Physician Query-Sepsis ---
Physician Query-Sepsis Query to Physician: The documentation in this patient's medical record requires additional clarification to accurately capture the patient's diagnosis (es), treatment, acuity, and/or severity of illness per CMS guidelines. Criteria, any TWO of the following with an infectious OR noninfectious etiology: * Temp= <96.8 or >100.4 * HR= >90 bpm * RR= >20/min or PaCO2<32 mmHG * WBC= <4000 or >12,000; or >10% bands PATIENT DATA: DATE/TIME: 06/23 TEMP: 98.1 PULSE: 110 RESP: 24 B/P: 146/79 WBC: 14.9 LACTIC ACID: OTHER: Blood Culture Organism: Summary states in hospital course: Pt is a 31yoAAM who was admitted to the hospital for postinfluenza pneumonia. He was found to be septic with strep pneumonia bacteremia from his pneumonia. Patient also had ARDS and acute respiratory failure with hypoxia. There is no mention of sepsis in Final dx. Please clarify if this patient had SEPSIS? Blood Culture Organism: (Negative or inconclusive blood cultures do not preclude a diagnosis of septicemia or Sepsis in patients with clinical evidence of the condition.) Choose one of the below Dx: Sepsis=2 or more SIRS criteria with an identified source or suspected source of infection Severe Sepsis=Sepsis associated with organ dysfunction, hypoperfusion or hypotension. (Manifestations may include lactic acidosis, oliguria, and acute alteration in mental status.) Septic Shock=Acute circulatory failure unexplained by other cause: SBP <90 or MAP <65 or reduction in SBP 40 mmHg from baseline despite adequate volume resuscitation or Lactate Level >=4 mmol/L. Patients who require inotropic or vasopressor support despite adequate fluid replacement are in septic shock. Septicemia=Systemic disease associated with the presence of pathological microorganisms or toxins in the blood. Bacteremia=Per ICD-9 guidelines, Bacteremia indicates the presence of bacteria in the blood, but DOES NOT infer the bacterium are pathological or has resulted in any systemic illness needing treatment Please indicate if no sepsis, none of the above, not correct physician/provider. PHYSICIAN RESPONSE: Choose one of the diagnosis: Not correct physician Physician Note: Other Physician: Dr Snow If you have questions please contact: Passenger Elevator Operator: Ext: Thank you for your time and cooperation. Clinical [facility] Hosp[facility] Aide/Passenger Elevator Operator This is a permanent part of the medical record JOSEE WERNER Jul 02, 2017 17:17 CAIN BURRELL MD Jul 03, 2017 19:47
== END 2017-07-01 14:15 | disposition home or self-care (01) | DRG 871 ==
LOC: EDUNIT# 05:57 → ER 06:00 → 4TH 08:00 → ICU 06-25 07:43 → 4TH 06-29 14:00
PROVIDERS: ADMIT Internal Medicine; ATTEND Internal Medicine
PROC: 5A1945Z Respiratory Ventilation, 24-96 Consecutive Hours (ICD-10-PCS; 2017-06-25)
PROC: 02HV33Z Insertion of Infusion Device into Superior Vena Cava, Percutaneous Approach (ICD-10-PCS; 2017-06-25)
PROC: 02HV33Z Insertion of Infusion Device into Superior Vena Cava, Percutaneous Approach (ICD-10-PCS; 2017-06-25)
PROC: 0B958ZX Drainage of Right Middle Lobe Bronchus, Via Natural or Artificial Opening Endoscopic, Diagnostic (ICD-10-PCS; principal; 2017-06-26)
DX: A40.3 Sepsis due to Streptococcus pneumoniae (principal); J13 Pneumonia due to Streptococcus pneumoniae; J96.01 Acute respiratory failure with hypoxia; J44.0 Chronic obstructive pulmonary disease with (acute) lower respiratory infection; J44.1 Chronic obstructive pulmonary disease with (acute) exacerbation; R78.81 Bacteremia; I16.9 Hypertensive crisis, unspecified; J98.11 Atelectasis; B37.1 Pulmonary candidiasis; F41.9 Anxiety disorder, unspecified; F17.210 Nicotine dependence, cigarettes, uncomplicated; R07.81 Pleurodynia; D64.9 Anemia, unspecified; E87.6 Hypokalemia; I87.2 Venous insufficiency (chronic) (peripheral)
CPT/HCPCS: 36415; 71045; 71046; 71275; 80048; 80053; 81000; 82805; 82962; 83605; 83735; 83880; 84100; 84478; 85007; 85025; 85027; 85045; 86703; 87040; 87070; 87077; 87081; 87101; 87116; 87205; 87804; 93005; 93306; 94002; 94003; 94640; 94664; 94760; 94761; 94799; 96365; 96375

== ENCOUNTER 2017-07-08 04:27 | Emergency (ER) | payer SELFPAY ==
[~2017-07-08] VITALS: Ht 188 cm; Wt 88.6 kg
[~2017-07-08 04:27] MED LIST: AMLO5TAB2 PO; CEPH250C PO; FLUC100T6 PO; PRED10TA22 PO; RT-ALBUINH IH
[2017-07-08] MEDS ORDERED: KETOROLAC 30 MG/ML VIAL IVP STA (04:36)
--- NOTE | 2017-07-08 04:52 | ED General ---
General Chief Complaint: General Problems/Pain Stated Complaint: CANT FEEL LEGS Nursing Triage Note: EMS reports that they got paged out for patient having CP and SOA, patient on arrival reports that he can't move or feel his legs. On arrival to ER patient reports that he can't fell his legs but they hurt. patient is able to move his legs without assistance, but states is weak Nursing Sepsis Screen: No Definite Risk Source of Information: Patient, EMS, Old Records History of Present Illness Date Seen by Provider: Jul 08, 2017 Time Seen by Provider: 04:30 Initial Comments PT ARRIVES VIA EMS FROM HOME EMS REPORT THAT PT CALLED THEM FOR C/O CHEST PAIN AND SHORTNESS OF BREATH ON ARRIVAL TO ER, PT ONLY C/O "CANT MOVE OR FEEL HIS LEGS" YET IMMEDIATELY AFTER THAT HE STATES HE CAN MOVE HIS LEGS AND HIS LEGS HURT STATES HE "CAN'T GET UP" THAT HIS LEGS ARE NUMB AND CAN'T MOVE THEM--THEN STATES THEY JUST HURT, WHICH IS NOW PT'S ONLY COMPLAINT--SAYS ALL THIS HE IS FREELY MOVING HIS LEGS IN ALL DIFFERENT POSITIONS-COMPLETELY FLEXING AND EXTENDING THEM AND MOVING THEM FROM SIDE TO SIDE, CONSTANTLY MOVING AROUND IN BED PT STATES HE HAS NOT TAKEN ANYTHING FOR PAIN STATES HE CAN'T SLEEP DUE TO PAIN IN HIS LEGS. STATES PAIN IN LEGS STARTED YESTERDAY 07/06/17 PT DOES NOT C/O CHEST PAIN OR SHORTNESS OF BREATH ON ARRIVAL TO ER. PT WAS SEEN IN ER 06/20 AND DX WITH VIRAL URI PT ADMITTED 06/23/17-07/01/17 FOR PNEUMONIA WITH SEPSIS AND SUBSEQUENT ARDS/ RESPIRATORY FAILURE AND REQUIRED INTUBATION, CENTRAL LINES X 2, AND BRONCHOSCOPY. BLOOD CULTURES GREW OUT STREP PNEUMONIA AND BRONCHIAL WASHINGS AND SPUTUM GREW OUT ED --SENT HOME ON KEFLEX, DIFLUCAN, STEROIDS, INHALER, WELL AMLODIPINE FOR NEW DX OF HTN STATES HE HAS NOT HAD COUGH OR FEVER SINCE HE WAS DISMISSED FROM THE HOSPITAL STILL TAKING ANTIBIOTICS, AND JUST FINISHED PREDNISONE NO PCP--'JUST MOVED HERE" FROM [place] A YEAR AGO IS SUPPOSED TO FOLLOW UP WITH DR. SEALS NEXT WEEK Allergies and Home Medications Allergies Coded Allergies: No Known Drug Allergies (Unverified , 06/20/17) Home Medications Albuterol Sulfate 1 Puff Puff, 2 PUFF IH Q4H 1 PUFF = 90 MCG Prescribed by: CAIN BURRELL on 07/01/17 1001 Amlodipine Besylate 5 Mg Tablet, 10 MG PO DAILY Prescribed by: CAIN BURRELL on 07/01/17954 Cephalexin 250 Mg Capsule, 500 MG PO QID Prescribed by: CAIN BURRELL on 07/01/17954 Fluconazole 100 Mg Tablet, 100 MG PO DAILY Prescribed by: CAIN BURRELL on 07/01/17954 Prednisone 10 Mg Tab.ds.pk, 10 MG PO DAILY Take 6 tabs(60mg)daily,decrease by 1 tab(10mg)every other day. Prescribed by: CAIN BURRELL on 07/01/17954 Patient Home Medication List Home Medication List Reviewed: Yes Constitutional: no symptoms reported, No chills, No diaphoresis, No dizziness, No fever, No malaise, No weakness EENTM: no symptoms reported Respiratory: see HPI, No cough, No orthopnea, short of breath, No wheezing Cardiovascular: see HPI, No edema Gastrointestinal: no symptoms reported Genitourinary: no symptoms reported Musculoskeletal: see HPI, back pain (STATES HIS BACK ALWAYS HURTS AND HAS FOR YEARS--NO DIFFERENT TODAY) Skin: no symptoms reported Psychiatric/Neurological: See HPI, Anxiety Hematologic/Lymphatic: No Symptoms Reported Immunological/Allergic: no symptoms reported Past Rtokzxf-Putiah-Sbualj Hx Patient Social History Alcohol Use: Occasionally Uses Number of Drinks Today: AA Alcohol Beverage of Choice: Beer Recreational Drug Use: Yes (DENIES BUT TESTED + FOR THC 07/08/17) Smoking Status: Current Everyday Smoker (1/2 PPD) Type Used: Cigarettes Recent Foreign Travel: No Contact w/Someone Who Travel: No Recent Infectious Disease Expo: No Recent Hopitalizations: No Physical Abuse: No Sexual Abuse: No Immunizations Up To Date Tetanus Booster (TDap): Unknown PED Vaccines UTD: Yes Date of Influenza Vaccine: Jul 01, 2017 Seasonal Allergies Seasonal Allergies: No Surgeries History of Surgeries: Yes (BRONCHOSCOPY) Respiratory History of Respiratory Disorde: Yes (PNEUMONIA WITH SEPSIS/ARDS AND INTUBATION 06/23/17; ALSO DX WITH PULMONARY HTN AND COPD AT THAT TIME) Respiratory Disorders: Pneumonia Currently Using CPAP: No Currently Using BIPAP: No Cardiovascular History of Cardiac Disorders: Yes (PULMONARY HTN AND TRICUSPID REGURGITATION, AND HTN DX ON ADMIT 06/23/17) Cardiac Disorders: Hypertension, Valvular Heart Disease Neurological History of Neurological Disord: No Genitourinary History of Genitourinary Disor: No Gastrointestinal History of Gastrointestinal Di: No Musculoskeletal History of Musculoskeletal Dis: Yes Musculoskeletal Disorders: Chronic Back Pain Endocrine History of Endocrine Disorders: No HEENT History of HEENT Disorders: No Cancer History of Cancer: No Psychosocial History of Psychiatric Problem: Yes Behavioral Health Disorders: Anxiety Suicide Risk Score: 0 Integumentary History of Skin or Integumenta: No Blood Transfusions History of Blood Disorders: No Family Medical History Family Medial History: Asthma 19 FATHER Cardiovascular disease 19 FATHER (ENLARGED HEART) Physical Exam Vital Signs Vital Signs - First Documented 07/08/17 04:32 Temp 98.8 Pulse 90 Resp 18 B/P (MAP) 145/96 (112) Pulse Ox 100 Capillary Refill : Less Than 3 Seconds General Appearance: WD/WN, Anxious, Other (HYPERVENTILATING, MOVING ALL OVER, MOANING, HEAVY EXHALING, YAWNING FREQUENTLY. VERY DRAMATIC. ) Eyes: Bilateral Eye Normal Inspection, Bilateral Eye PERRL, Bilateral Eye EOMI HEENT: PERRL/EOMI, Normal ENT Inspection Neck: Full Range of Motion, Normal Inspection, Non Tender, Supple, No Carotid Bruit, No JVD Respiratory: Chest Non Tender, Normal Breath Sounds, No Accessory Muscle Use, No Respiratory Distress, Other ( ABOVE) Cardiovascular: Regular Rate, Rhythm, No Edema, No Gallop, No JVD, Normal Peripheral Pulses (+3/4 BILATERALLY), Systolic Murmur (1-2/6) Gastrointestinal: Normal Bowel Sounds, No Organomegaly, No Pulsatile Mass, Non Tender, Soft Back: Normal Inspection, No CVA Tenderness, No Vertebral Tenderness Extremity: Normal Capillary Refill, No Calf Tenderness, No Pedal Edema Neurologic/Psychiatric: Alert, Oriented x3, No Motor/Sensory Deficits, sock ironer II- XII Norm as Tested, Other ( ABOVE. FREELY MOVING LEGS IN ALL DIRECTIONS, YET WHEN ASKED TO MOVE ON REQUEST, HAS MINIMAL EFFORT-STATES IT HURTS TO MOVE THEM. DTR'S +2/4 IN ALL EXTREMITIES. NEGATIVE BABINSKI'S ) Reflexes: 2+ Bicep (R), 2+ Bicep (L), 2+ Knee (R), 2+ Knee (L) Skin: Normal Color, Warm/Dry Date of ETT Placement: Jun 25, 2017 Time of ETT Placement: 0800 Progress/Results/Core Measures Suspected Sepsis Recent Fever Within 48 Hours: No Infection Criteria Present: None New/Unexplained Altered Menta: No Sepsis Screen: No Definite Risk Sepsis Diagnosis: SIRS Temperature:98.8 Pulse: 90 Respiratory Rate: 18 Laboratory Tests 07/08/17 04:35: White Blood Count 12.1H Blood Pressure 145 /96 Mean: 112 Laboratory Tests 07/08/17 04:35: Creatinine 0.60, INR Comment 0.9, Platelet Count 681H, Total Bilirubin 0.6 Results/Orders Lab Results Laboratory Tests Test 07/08/17 04:35 07/08/17 05:30 Range/Units White Blood Count 12.1 H 4.3-11.0 10^3/uL Red Blood Count 3.48 L 4.35-5.85 10^6/uL Hemoglobin 11.5 L 13.3-17.7 G/DL Hematocrit 31 L 40-54 % Mean Corpuscular Volume 90 80-99 FL Mean Corpuscular Hemoglobin 33 25-34 PG Mean Corpuscular Hemoglobin Concent 37 H 32-36 G/DL Red Cell Distribution Width 13.0 10.0-14.5 % Platelet Count 681 H 130-400 10^3/uL Mean Platelet Volume 8.3 7.4-10.4 FL Neutrophils (%) (Auto) 69 42-75 % Lymphocytes (%) (Auto) 24 12-44 % Monocytes (%) (Auto) 6 0-12 % Eosinophils (%) (Auto) 0 0-10 % Basophils (%) (Auto) 0 0-10 % Neutrophils # (Auto) 8.4 H 1.8-7.8 X 10^3 Lymphocytes # (Auto) 2.9 1.0-4.0 X 10^3 Monocytes # (Auto) 0.7 0.0-1.0 X 10^3 Eosinophils # (Auto) 0.0 0.0-0.3 10^3/uL Basophils # (Auto) 0.0 0.0-0.1 10^3/uL Prothrombin Time 12.2 12.2-14.7 SEC INR Comment 0.9 0.8-1.4 Activated Partial Thromboplast Time 27 24-35 SEC Sodium Level 136 135-145 MMOL/L Potassium Level 3.8 3.6-5.0 MMOL/L Chloride Level 101 98-107 MMOL/L Carbon Dioxide Level 22 21-32 MMOL/L Anion Gap 13 5-14 MMOL/L Blood Urea Nitrogen 7 7-18 MG/DL Creatinine 0.60 0.60-1.30 MG/DL Estimat Glomerular Filtration Rate > 60 BUN/Creatinine Ratio 12 Glucose Level 113 H 70-105 MG/DL Calcium Level 9.3 8.5-10.1 MG/DL Magnesium Level 2.0 1.8-2.4 MG/DL Total Bilirubin 0.6 0.1-1.0 MG/DL Aspartate Amino Transf (AST/SGOT) 16 5-34 U/L Alanine Aminotransferase (ALT/SGPT) 51 0-55 U/L Alkaline Phosphatase 58 40-136 U/L Total Creatine Kinase 39 30-200 U/L Creatine Kinase MB 0.3 <6.6 NG/ML Troponin I < 0.30 <0.30 NG/ML B-Type Natriuretic Peptide < 10.0 <100.0 PG/ML Total Protein 6.4 6.4-8.2 GM/DL Albumin 3.9 3.2-4.5 GM/DL TSH [place] Testing 1.91 0.35-4.94 UIU/ML Salicylates Level < 5.0 L 5.0-20.0 MG/DL Acetaminophen Level < 10 L 10-30 UG/ML Serum Alcohol < 10 <10 MG/DL Urine Color YELLOW Urine Clarity CLEAR Urine pH 8 5-9 Urine Specific [place] 1.015 L 1.016-1.022 Urine Protein NEGATIVE NEGATIVE Urine Glucose (UA) NEGATIVE NEGATIVE Urine Ketones NEGATIVE NEGATIVE Urine Nitrite NEGATIVE NEGATIVE Urine Bilirubin NEGATIVE NEGATIVE Urine Urobilinogen NORMAL NORMAL MG/DL Urine Leukocyte Esterase NEGATIVE NEGATIVE Urine RBC (Auto) NEGATIVE NEGATIVE Urine RBC NONE /HPF Urine WBC NONE /HPF Urine Squamous Epithelial Cells RARE /HPF Urine Crystals NONE /LPF Urine Bacteria NEGATIVE /HPF Urine Casts NONE /LPF Urine Mucus NEGATIVE /LPF Urine Culture Indicated NO Urine Opiates Screen NEGATIVE NEGATIVE Urine Oxycodone Screen NEGATIVE NEGATIVE Urine Methadone Screen NEGATIVE NEGATIVE Urine Propoxyphene Screen NEGATIVE NEGATIVE Urine Barbiturates Screen NEGATIVE NEGATIVE Ur Tricyclic Antidepressants Screen NEGATIVE NEGATIVE Urine Phencyclidine Screen NEGATIVE NEGATIVE Urine Amphetamines Screen NEGATIVE NEGATIVE Urine Methamphetamines Screen NEGATIVE NEGATIVE Urine Benzodiazepines Screen NEGATIVE NEGATIVE Urine Cocaine Screen NEGATIVE NEGATIVE Urine Cannabinoids Screen POSITIVE H NEGATIVE My Orders Orders - STEVENJOANAA K DO Saline Lock/Iv-Start (07/08/17 04:36) Ekg Tracing (07/08/17 04:36) Monitor-Rhythm Ecg Trace Only (07/08/17 04:36) Acetaminophen (07/08/17 04:36) Alcohol (07/08/17 04:36) BNP (07/08/17 04:36) Cbc With Automated Diff (07/08/17 04:36) Comprehensive Metabolic Panel (07/08/17 04:36) Creatine Kinase (07/08/17 04:36) Creatine Kinase Mb (07/08/17 04:36) Drug Screen Stat (Urine) (07/08/17 04:36) Magnesium (07/08/17 04:36) Protime With Inr (07/08/17 04:36) Partial Thromboplastin Time (07/08/17 04:36) Salicylate (07/08/17 04:36) Thyroid Analyzer (07/08/17 04:36) Troponin I (07/08/17 04:36) Ua Culture If Indicated (07/08/17 04:36) Chest 1 View, Ap/Pa Only (07/08/17 04:36) Ketorolac Injection (Toradol Injection) (07/08/17 04:36) Vital Signs/I&O Vital Sign - Last 12Hours 07/08/17 04:32 Temp 98.8 Pulse 90 Resp 18 B/P (MAP) 145/96 (112) Pulse Ox 100 Capillary Refill : Less Than 3 Seconds Blood Pressure Mean: 112 Progress Note : Progress Note 0445--PT NOW SLEEPING SOUNDLY WITH HOODED JACKED AND COVERS PULLED OVER HIS HEAD , AND HAD TO BE WAKENED FOR CXR AND IV START/LAB DRAW. PT NO LONGER MOANING OR THRASHING ALL OVER. QUICKLY WENT BACK TO SLEEP--ALL THIS IS PRIOR TO PT BEING GIVEN TORADOL FOR PAIN PT EASILY AWAKENED, DOES NOT APPEAR TO BE IN ANY DISCOMFORT NOW, AND THEN GOES BACK TO SLEEP EASILY WHEN LEFT ALONE. PT SLEPT SOUNDLY FOR REMAINDER OF ER STAY PT HAD NO COMPLAINTS OF CHEST PAIN OR SHORTNESS OF BREATH AT ANY TIME DURING ER STAY PT STATES LEGS DO FEEL MUCH BETTER AFTER TORADOL PT ABLE TO AMBULATE AROUND THE ROOM ON HIS OWN, BUT HAS TO SIT DOWN AFTER 5-10 STEPS, STATING HIS LEGS FEEL STIFF AND SORE LATER STATES THAT HE HAD NOT BEEN GETTING UP MUCH SINCE HE HAD BEEN DISMISSED FROM HOSPITAL AND HAD BEEN MOSTLY SITTING, THEN STATES "MAYBE I DID TOO MUCH" AND HAD BEEN WALKING AROUND OUTSIDE THE LAST COUPLE OF DAYS WHEN WEATHER WAS REALLY NICE. PT ALSO STATES HE THINKS HE LOST "ABOUT 50 POUNDS" SINCE HE WAS IN HOSPITAL. STATES HE WEIGHED "AROUND 230 OR 210 OR 215 OR 220" BEFORE HE WENT IN HOSPITAL AND STATES HE WEIGHED 180 WHEN HE WAS DISMISSED. ON REVIEW OF RECORD, PT WEIGHED 95 KG ON 06/23/17 AND WAS 88 KG ON 06/30/17. PT WEIGHS 195 LBS / 87 KG TODAY. NO WALKERS ARE AVAILABLE IN HOSPITAL AT THIS TIME. WILL WRITE RX FOR WALKER TO GET FILLED AT [facility]. RN CALLED [facility] APPLICATION DEVELOPMENT LIAISON, NO ANSWER. PT ENCOURAGED TO GRADUALLY INCREASE HIS ACTIVITY, USING WALKER FOR ADDITIONAL STABILITY ECG Initial ECG Impression Date: Jul 08, 2017 Initial ECG Impression Time: 04:38 Initial ECG Rate: 85 Initial ECG Rhythm: Normal Sinus Initial ECG Comparisson: Unchanged Diagnostic Imaging Comments CXR--NO ACUTE PROCESS, PENDING RADIOLOGIST REVIEW Reviewed: Reviewed by Me Departure Communication (Admissions) Progress Notes 0626--SPOKE WITH DR. PASTOR, SHE STATES PT IS NOT CANDIDATE FOR INPATIENT REHAB AT THIS POINT. Impression Impression: Primary Impression: GENERALIZED BILATERAL LEG PAIN Additional Impression: POST HOPSITALIZATION DECONDITIONING Disposition: 01 HOME, SELF-CARE Condition: Improved Departure-Patient Inst. Referrals: NO,LOCAL PHYSICIAN (PCP/Family) Primary Care Physician Patient Instructions: General Bedrest Strengthening Exercises, Muscle Strain ( DC) Add. Discharge Instructions: CONTINUE YOUR MEDICATIONS PRESCRIBED FOLLOW UP WITH DR. SEALS THIS WEEK PRESCRIBED ESTABLISH WITH LOCAL DR OF CHOICE SOON POSSIBLE--LIST PROVIDED--CALL TOMORROW TO ARRANGE APPOINTMENT All discharge instructions reviewed with patient and/or family. Voiced understanding. Scripts Walker (Ultra-Light Rollator) 1 Each Each EACH for IMPAIRED MOBILITY, #1 Prov: YOLA HARRIS DO 07/08/17 Naproxen (Naproxen) 500 Mg Tablet 500 MG PO BID, #15 TAB Prov: YOLA HARRIS DO 07/08/17 YOLA HARRIS DO Jul 08, 2017 04:52
[2017-07-08 04:55] LABS: BASOPHILS % (AUTO) 0 % (0-10); EOSINOPHILS % (AUTO) 0 % (0-10); HEMATOCRIT 31 % (40-54); HEMOGLOBIN 11.5 G/DL (13.3-17.7); LYMPHOCYTES # (AUTO) 2.9 X 10^3 (1.0-4.0); LYMPHOCYTES % (AUTO) 24 % (12-44); MEAN CORPUSCULAR HEMOGLOBIN 33 PG (25-34); MEAN CORPUSCULAR HGB CONC 37 G/DL (32-36); MEAN CORPUSCULAR VOLUME 90 FL (80-99); MEAN PLATELET VOLUME 8.3 FL (7.4-10.4); MONOCYTES # (AUTO) 0.7 X 10^3 (0.0-1.0); MONOCYTES % (AUTO) 6 % (0-12); NEUTROPHILS # (AUTO) 8.4 X 10^3 (1.8-7.8); NEUTROPHILS % (AUTO) 69 % (42-75); PLATELET COUNT 681 10^3/uL (130-400); RED BLOOD COUNT 3.48 10^6/uL (4.35-5.85); WHITE BLOOD COUNT 12.1 10^3/uL (4.3-11.0)
[2017-07-08 05:14] LABS: INR 0.9 (0.8-1.4); PROTHROMBIN TIME PATIENT 12.2 SEC (12.2-14.7)
[2017-07-08 05:31] LABS: ALANINE AMINOTRANSFERASE 51 U/L (0-55); ALBUMIN 3.9 GM/DL (3.2-4.5); ALKALINE PHOSPHATASE 58 U/L (40-136); BILIRUBIN,TOTAL 0.6 MG/DL (0.1-1.0); BUN/CREATININE RATIO 12; CALCIUM 9.3 MG/DL (8.5-10.1); CARBON DIOXIDE 22 MMOL/L (21-32); CHLORIDE 101 MMOL/L (98-107); CREATINE KINASE 39 U/L (30-200); GFR ESTIMATED > 60; GLUCOSE 113 MG/DL (70-105); POTASSIUM 3.8 MMOL/L (3.6-5.0); SALICYLATE < 5.0 MG/DL (5.0-20.0); SODIUM 136 MMOL/L (135-145); TOTAL PROTEIN 6.4 GM/DL (6.4-8.2)
[2017-07-08 05:41] LABS: ACETAMINOPHEN < 10 UG/ML (10-30)
[2017-07-08 05:45] LABS: BILIRUBIN,URINE NEGATIVE (NEGATIVE); CLARITY,URINE CLEAR; COLOR,URINE YELLOW; GLUCOSE, URINE (UA) NEGATIVE (NEGATIVE); KETONES,URINE NEGATIVE (NEGATIVE); LEUKOCYTE ESTERASE ,URINE NEGATIVE (NEGATIVE); NITRITE,URINE NEGATIVE (NEGATIVE); PH,URINE 8 (5-9); PROTEIN,URINE NEGATIVE (NEGATIVE); UROBILINOGEN,URINE NORMAL (NORMAL)
[2017-07-08 05:46] LABS: BACTERIA,URINE NEGATIVE /HPF; SQUAMOUS EPITHELIAL CELL,UR RARE /HPF
[2017-07-08 05:51] LABS: BENZODIAZEPINES SCREEN URINE NEGATIVE (NEGATIVE); COCAINE SCREEN URINE NEGATIVE (NEGATIVE)
[2017-07-08 05:52] LABS: AMPHETAMINE SCREEN, URINE NEGATIVE (NEGATIVE); BARBITURATE SCREEN URINE NEGATIVE (NEGATIVE); CANNABINOID SCREEN, URINE POSITIVE (NEGATIVE); METHADONE STAT NEGATIVE (NEGATIVE); METHAMPHETAMINE SCREEN URINE S NEGATIVE (NEGATIVE); OPIATE SCREEN URINE NEGATIVE (NEGATIVE); OXYCODONE STAT NEGATIVE (NEGATIVE); PROPOXYPHENE STAT NEGATIVE (NEGATIVE); TRICYCLIC ANTIDEPRESSANTS SCRE NEGATIVE (NEGATIVE)
[2017-07-08 05:56] LABS: CREATINE KINASE MB 0.3 NG/ML (<6.6); TSH (THYROID ANALYZER) 1.91 UIU/ML (0.35-4.94)
[2017-07-08] MEDS ORDERED: NAPR-915 PO (06:47)
[2017-07-08] MEDS ORDERED: WALK1EAC23 MC (06:50)
--- NOTE | 2017-07-08 06:50 | Diagnostic Imaging Report ---
INDICATION: Chest pain Portable chest 4:50 AM Heart and mediastinum are normal. Lungs are clear. There are no effusions or pneumothoraces. IMPRESSION: Negative chest Dictated by: Dictated on workstation # [id number]
[2017-07-08 07:15] VITALS: BP 142/72
== END 2017-07-08 07:15 | disposition home or self-care (01) ==
LOC: EDUNIT# 04:27 → ER 04:28
DX: M79.605 Pain in left leg (principal); M79.604 Pain in right leg; R53.1 Weakness; F41.9 Anxiety disorder, unspecified; J44.9 Chronic obstructive pulmonary disease, unspecified; I10 Essential (primary) hypertension; F12.90 Cannabis use, unspecified, uncomplicated; F17.210 Nicotine dependence, cigarettes, uncomplicated; Z87.01 Personal history of pneumonia (recurrent); Z79.52 Long term (current) use of systemic steroids
CPT/HCPCS: 36415; 71045; 80053; 80306; 80320; 80329; 81000; 82550; 82553; 83735; 83880; 84443; 84484; 85025; 85610; 85730; 93005; 96374